=== PATIENT | female | born 1960 | race Caucasian/White ===

== ENCOUNTER → 2017-09-12 08:12 | Outpatient (CLI) | payer OTHER, SELFPAY ==
--- NOTE | 2017-09-12 08:14 | BI_ITS ---
MAMMOGRAPHY - BILATERAL SCREENING REASON FOR EXAM: Female, 57 years old. Routine annual screening examination. PERTINENT HISTORY: Non-contributory. TECHNIQUE: Digital bilateral breast nicolette (3D mammographic acquisition) in the CC and MLO projections. 2-D mediolateral oblique (MLO) and craniocaudad (CC) views of both breasts were obtained. CAD: Full Field Digital Mammography with Computer Added Detection was performed. COMPARISON: Comparison is made with prior examination dated May 27, 2016 and February 05, 2015. FINDINGS: Breast Composition: The breasts are heterogeneously dense, which may obscure small masses. There are no dominant masses or suspicious calcifications. No other significant abnormalities are identified. There has been no significant change since the prior study. BI/SCREENING MAMM (CAD), BILAT IMPRESSION: Stable bilateral screening mammogram. Yearly follow-up mammogram recommended. (A) ASSESSMENT CATEGORY: BIRADS Category 1: Negative. A letter regarding these results will be sent to the patient by the facility within 30 days. Approximately 10% of breast cancers are not detected by mammography. A normal mammogram should not delay biopsy of a clinically suspicious abnormality. [id number] Electronically Signed: Basil Burt MD at 9:03 EDT Tel [phone], Service support ,
== END ==
PROVIDERS: Family Provider Family Medicine; PCP Family Medicine; Visit Provider Obstetrics & Gynecology
DX: Z12.31 Encounter for screening mammogram for malignant neoplasm of breast (principal)
CPT/HCPCS: 77063; 77067

== ENCOUNTER 2017-10-02 15:00 | Outpatient (RCR) | payer OTHER, SELFPAY ==
--- NOTE | 2017-09-11 16:49 | HP.OTEVAL_ITS ---
Patient's Visit Information SRAVANTHI COULTER is a 57 year old F, referred to Occupational Therapy by Asif Webb, with a diagnosis of CTS. Date of Evaluation: 09/11/17 Occupational Therapist: Jennifer Joseph, KENYA/Gladis, CHT - Subjective Subjective: Pt states she had a C3-C7 fusion in 2015- pt states following sx her symptoms did resolve- pt states in October 2016 she was paddle boarding and noted increase symptoms of numbness tingling- at this point- pt state she has had steroid orally but would like to handle her symptoms without medication or sx-pt states she does sleep in a wrist brace. pt states she get relief when she danggles her arm off the edge of the bed. 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 - Pain left wrist 4 Pain Intensity Range: 1, 6 - ROM ROM Comments: ROM WNL - Strength Forearm: Right 4+/5 left 4/5 pain with resisitive pro/supination Decorating Machine Tender: right 35# left 60# Lateral Pinch: right 10# left 8# Tripod Pinch: right 8# left 2# pain with tripod pinch on volar forearm - Edema Wrist: right 16cm left 16.5cm - Sensation Thumb: right 2.83 left 2.83 Index: right 2.83 left 3.22 Middle: right 2.83 left 2.83 Ring: right 2.83 left 2.83 Little: right 2.83 left 2.83 - Special Tests Median Nerve Compression Test: positive - Carpal Tunnel Syndrome Total Score of Symptom & Functional Sections: 39 - Goals Goal:: pt will demo a increase pts left single pointed operator strength to 60# or greater to return pt to PLOF by d/c Goal:: pt will report pain no greater than 1/10 with use of left hand for BADLS and IADLS by D/C Goal:: pt will report a decrease in CTS to less than 1x a week by d/c - Rehabilitation General Assessment: PT is demo with positive CTS of left UE. pt would benefit from skilled OT services to decrease symptoms of numbness/tingling, ed. on ergo and PRE to work on posture ex for pt to return to her PLOF. Rehabilitation Potential: Good - Anticipated Interventions Anticipated Interventions: A/POPOM/PROM, Strengthening, Modalities, Orthoses, Joint Protection/Energy Conservation, Ergonomic Education - Visit Plan Frequency: 2x /Week Duration: 4 Weeks TEXT: Thank you for the opportunity to evaluate your patient. For Medicare and Medicare HMO plans, please review the plan of care and approve it. It will need to be FAXED BACK to us at [phone] for Medicare purposes. Please let me know if there are questions or concerns regarding this plan of care. Physician Signature: Date:
--- NOTE | 2017-09-11 16:50 | HP.PTEVAL ---
Patient's Visit Information SRAVANTHI COULTER is a 57 year old F referred to Physical Therapy by Asif Webb with a diagnosis of THORACIC OUTLET SYNDROME. Date of Evaluation: 09/11/17 Physical Therapist: Migdalia Green - Visit Plan Frequency: 1 Duration: 1 Plan: D/C FROM PT TO HEP AND FOLLOW UP WITH OT. - Subjective Subjective: Diagnosis: THORACIC OUTLET SYNDROME. Work/Leisure: RETIRED. 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 Disability: NO. Present symptoms: NO NECK PAIN AT ALL. LEFT HAND NUMBNESS AND COLDNESS. HER LEFT HAND SX'S OCCURRED RECENT YESTERDAY. THE HAND GETS VERY COLD AT TIMES AND TINGLY. SOME PAIN ONCE IN A WHILE IN THE SHOULDER JOINT. HER LEFT SHOULDER PAIN HAS NOT OCCURRED FOR ABOUT A MONTH NOW. SOMETIMES IT FEELS LIKE RARELY IT SHOOTS DOWN THE ARM INTO THE UPPER ARM - NOT BELOW THE ELBOW AND NOT SINCE TAKING THE PREDNISONE. ALTHOUGH HER HAND IS STARTING TO GO NUMB AGAIN SHE IS ABLE TO MAKE IT GO AWAY BY NOT USING HER ARM AND RESTING IT. Present since: LAST OCTOBER 2016 - ALMOST A YEAR AGO. Pain Scale: Worst - NO SHOULDER PAIN FOR ABOUT A MONTH. Currently: 0/10. 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 Symptoms at onset: CONTINUOUS NUMBNESS OF LEFT HAND. Worse: PRIOR TO TAKING THE PREDNISONE ALMOST ANYTHING PROVOKED LEFT SHOULDER PAIN. AND SOMETIMES IT WOULD JUST OCCUR FOR NO APPARENT REASON. Better: LYING ON STOMACH AND LETTING ARM DANGLE COMPLETELY RELIEVES ALL OF LEFT UE SX'S BUT SHE HASN'T HAD TO DO IT FOR ABOUT A MONTH BECAUSE SHE STARTED PREDNISONE. SHE HAS BEEN OFF OF PREDNISONE ABOUT 13 DAYS NOW. Disturbed sleep: YES. Previous history/Previous treatment: ACDF NOV 2015 - [facility]. 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 WEBB A FEW TIMES. SHE REPORTS SHE HAS HAD SOME SEVERE EPISODES OF PAIN BUT PREDNISONE HAS HELPED AND SHE WAS ON IT FOR ABOUT A MONTH. SHE STATES SHE HAD A FOLLOW UP WITH DR. LEMA SINCE THIS ARM/HAND FLARED UP AND AFTER NCT AND X-RAYS OF NECK THEY DETERMINED IT WAS CARPAL TUNNEL SYNDROME. SHE REPORTS THE NCT FOR CARPAL TUNNEL WAS WORSE THIS TIME COMPARED TO LAST NCT IN 2014. Dizziness: Tinnitis: Nausea: Difficulty Swollowing: Gait: Accidents: Unexplained weight loss: Imaging: PMH/Recent major surgery: - Objective Sitting Posture/Standing Posture: FAIR. Active Correction of posture: NE. Other Observations: INDEP GAIT AND TRANSFERS. NO AD'S. Motor deficit: LOI SHOULDERS 5/5. Sensory deficit: HANDS NT - JUST HAD OT EVAL. ROM deficit: LOI SHOULDER ROM WFL. Cervical Mvmt Loss: Flex: MIN. Pro: MIN. Ext: MOD. Ret: MOD. RSB: MOD. LSB: MOD. R Rot: MOD. L Rot: MOD. CERVICAL ROM TESTING DOES NOT PROVOKE ANY UE SX'S. Postural strength: FAIR. OTHER: ADSON'S TEST - NEGATIVE. PATIENT DENIED SHOULDER AND UPPER ARM PAIN THROUGHOUT SESSION TODAY INCLUDING WITH EX INSTRUCTION. HEP OF SCALENE STRETCH, PEC STRETCH, SCAP RETRACTION, THORACIC EXTENSION, ROWING, PRONE MID TRAP STRENGTHENING AND AROM INTO LOI ABD AGAINST WALL ALL GIVEN. - Goals Goal 1:: INDEP HEP Goal Time Frame: 1 VISIT Goal Time Frame: 4-6 Weeks Goal Time Frame: 4-6 Weeks - Rehabilitation Potential Rehabilitation Potential: Fair - Anticipated Interventions Patient/Client Instruction: Educate patient on: Condition, Plan of Care, Risk Factors, Benefits of Fitness Program For the Purpose of:: To improve self management Thank you for the opportunity to evaluate your patient. For Medicare and Medicare HMO plans, please review the plan of care and approve it. It will need to be FAXED BACK to us at [phone] for Medicare purposes. Please let me know if there are questions or concerns regarding this plan of care. Physician Signature: Date:
--- NOTE | 2017-09-11 16:52 | HP.PTDCSUM_ITS ---
HP - PT D/C Summary It has been my pleasure to treat SRAVANTHI COULTER under orders from Asif Webb , for the diagnosis of THORACIC OUTLET SYNDROME for a total of 1 visit(s). Discharge Date: Please see the following information for a summary of their discharge status. - Goals Goal 1:: INDEP HEP - Plan Plan: D/C FROM PT TO HEP AND FOLLOW UP WITH OT. - D/C Information If there are questions or concerns regarding this patient's physical therapy, please feel free to call me at [phone]. Thank you for the referral of this patient. Sincerely, Migdalia Green
--- NOTE | 2017-10-02 15:00 | DT_ITS ---
This patient was seen during an EMR downtime September 25, 2017 - October 02, 2017. This patient may have a combination of paper and electronic documentation or all paper documentation. All documentation is viewable within the e-chart portion of [employer] for each patient visit.
--- NOTE | 2017-10-02 15:48 | HP.OTDCSUM_ITS ---
HP - OT D/C Summary It has been my pleasure to treat SRAVANTHI COULTER under orders from Asif Webb , for the diagnosis of CTS for a total of 7 visit(s). Please see the following information for a summary of their discharge status. - Overall Improvement % Improvement: 95 - Objective Objective/Function: left customer resolution specialist strength 60#. right 80# both customer resolution specialist strength has improved- pt demo full functional ROM of UB/and hand- - Goals Patient Goals: Regain Strength, Decrease Pain, Use Hand/Wrist/Arm Normally Again , Sleep Better, Decrease Tingling/Numbness Goal:: pt will demo a increase pts left customer resolution specialist strength to 60# or greater to return pt to PLOF by d/c Goal:: pt will report pain no greater than 1/10 with use of left hand for BADLS and IADLS by D/C Goal:: pt will report a decrease in CTS to less than 1x a week by d/c - Plan Plan: D/C - D/C Information Discharge Comments: Pt was seen for a 7 OT visits- therapy ed. pt on forearm stretches, posture and forearm ext PRE with bands- pt did well following US and use of Hawk tool to decrease trigger points in left volar and dorsal forearms. pt's strength has incrased and symptoms of numb/ting and pain are minimal. pt has met functional goals in OT and is D/C with [facility] If there are questions or concerns regarding this patient's occupational therapy , please fell free to call me at [phone]. Thank you for the referral of this patient. Sincerely, Jennifer Joseph, OTR/L, CHT
== END 2017-10-02 19:00 | disposition home or self-care (01) ==
LOC: OT 15:00
PROVIDERS: Family Provider Family Medicine; PCP Family Medicine; Visit Provider Family Medicine
DX: G54.0 Brachial plexus disorders (principal); G56.00 Carpal tunnel syndrome, unspecified upper limb
CPT/HCPCS: 97035; 97140; 97162; 97166; 97168; 97530

== ENCOUNTER 2018-03-27 09:10 | Day surgery (SDC) | payer OTHER, SELFPAY ==
[2018-03-27] VITALS (8 sets, daily range): BP systolic 126–170; BP diastolic 64–117; PULSE 52–71; RESP 16; TEMP 36.4–36.6; O2SAT 98–100; BMI 22.4
--- NOTE | 2018-03-27 10:31 | PCM.HP.STD ---
Problem List (1) Screening for intestinal cancer Status: Acute History of Present Illness Date of Admission: 03/27/18 The patient is a 58 year old F who presents for a screening colonoscopy. She has never had a previous procedure. She denies bright red blood per rectum or melena. She well tolerated the bowel prep. No abdominal pain. No family history of colon polyps or colon cancer. She otherwise enjoys good health other than mild hypertension Past Medical History Allergies codeine Adverse Reaction (Verified 03/26/18 09:14) nausea/vomiting morphine Adverse Reaction (Verified 03/26/18 09:14) Nausea/Vom/Diarrhea Home Medications: Ambulatory Orders Medication Instructions Recorded Bisoprolol Fumarate [Zebeta] 5 mg PO LUNCH 03/26/18 Magnesium Oxide [Magnesium] 250 mg PO DAILY 03/26/18 Vitamin B Complex 1 each PO DAILY 03/26/18 Smoking Status: Never smoker Tobacco Use: Non-smoker Review of Systems Constitutional: Denies: Anorexia HEENT: Denies: Difficulty Swallowing Cardiovascular: Denies: Chest Pain Respiratory: Denies: Cough Gastrointestinal: Denies: Abdominal Pain, Hematochezia, Melena Psychiatric: Denies: Anxiety Endocrine: Denies: Change in Body Habitus VTE Information - Inpt Only VTE Present on Admission: No Patient Problems: Active and Suspected Problems Screening for intestinal cancer (Acute) - Physical Exam General: Alert, Oriented x3, Cooperative, No apparent distress HEENT: Atraumatic Oral: Moist Mucosa Lungs: Clear to auscultation, Normal air movement Cardiovascular: Regular rate, Regular Rhythm Abdomen: Bowel Sounds Present, Soft, Non Tender, Non-Distended Extremities: No Calf Tenderness Skin: No rashes Neurological: Cranial nerves II-XII grossly intact Psych/Mental Status: Normal Affect Vital Signs Temp Pulse Resp BP Pulse Ox 97.8 F 71 16 146/99 H 100 03/27/18 09:29 03/27/18 09:29 03/27/18 09:29 03/27/18 09:29 03/27/18 09:29 Oxygen Delivery Method Room Air Weight: 120 lb 9.486 oz Body Mass Index (BMI) 22.4 Assessment/Plan All Active Problems Screening for intestinal cancer (Acute) I am recommending a colonoscopy with possible biopsy or polypectomy as indicated. She instructs me that she is intolerant to morphine and codeine. She presents via our open access program. I have discussed with her the technique, benefits, risks and alternatives. She has had an opportunity to ask and have questions answered. We will proceed as noted. I will initiate the procedure with an antiemetic. Arnaldo Vargas M.D., F.A.C.S.
--- NOTE | 2018-03-27 11:01 | OP.ENDO_ITS ---
Patient Name: Sandra Aparicio Procedure Date: 03/27/2018 10:29 AM Date of : 1960 Age: 58 Procedure: Colonoscopy Indications: Screening for colorectal malignant neoplasm Providers: Arnaldo Vargas MD Referring MD: Arnaldo Vargas MD Medicines: Fentanyl 100 micrograms IV, Midazolam 6 mg IV, Ondansetron 4 mg IV, Promethazine 12.5 mg IV Patient Profile: Last Colonoscopy: none. The patient's first colonoscopy is today. Complications: No immediate complications. Procedure: Pre-Anesthesia Assessment: - Prior to the procedure, a History and Physical was performed, and patient medications and allergies were reviewed. The patient's tolerance of previous anesthesia was also reviewed. The risks and benefits of the procedure and the sedation options and risks were discussed with the patient. All questions were answered, and informed consent was obtained. Prior Anticoagulants: The patient has taken no previous anticoagulant or antiplatelet agents. ASA Grade Assessment: I - A normal, healthy patient. After reviewing the risks and benefits, the patient was deemed in satisfactory condition to undergo the procedure. After I obtained informed consent, the scope was passed under direct vision. Throughout the procedure, the patient's blood pressure, pulse, and oxygen saturations were monitored continuously. The pediatric colonoscope was introduced through the anus and advanced to the cecum, identified by appendiceal orifice and ileocecal valve. The colonoscopy was performed without difficulty. The patient tolerated the procedure fairly well. The quality of the bowel preparation was good. The ileocecal valve was photographed. Moderate Sedation: Moderate (conscious) sedation was personally administered by the endoscopist. The following parameters were monitored: oxygen saturation, heart rate, blood pressure, and response to care. Total physician intraservice time was 15 minutes. Scope In: 10:40:49 AM Scope Withdrawal Time 0 hours 7 minutes 1 second Scope Out: 10:57:17 AM Total Procedure Duration Time 0 hours 16 minutes 28 seconds Findings: Hemorrhoids were found on perianal exam. The colon (entire examined portion) was moderately redundant. Advancing the scope required using manual pressure. The exam was otherwise without abnormality. Impression: - Hemorrhoids found on perianal exam. - Redundant colon. - The examination was otherwise normal. - No specimens collected. Recommendation: - Discharge patient to home. - Resume previous diet. - Repeat colonoscopy in 10 years for screening purposes. - Continue present medications. Procedure Code(s): --- Professional --- 78585, Colonoscopy, flexible; diagnostic, including collection of specimen(s) by brushing or washing, when performed (separate procedure) 57085, 59, Moderate sedation services provided by the same physician or other qualified health clinical care coordinator performing the diagnostic or therapeutic service that the sedation supports, requiring the presence of an independent trained observer to assist in the monitoring of the patient's level of consciousness and physiological status; initial 15 minutes of intraservice time, patient age 5 years or older Diagnosis Code(s): --- Professional --- Z12.11, Encounter for screening for malignant neoplasm of colon K64.9, Unspecified hemorrhoids Q43.8, Other specified congenital malformations of intestine CPT copyright 2017 [employer]. All rights reserved. The codes documented in this report are preliminary and upon data reduction technician review may be revised to meet current compliance requirements. Arnaldo Vargas MD 03/27/2018 11:01:28 AM This report has been signed electronically. Number of Addenda: 0 Note Initiated On: 03/27/2018 10:29 AM
== END 2018-03-27 12:13 | disposition home or self-care (01) ==
LOC: EN 09:11 → AC 09:12
PROVIDERS: Family Provider Family Medicine; PCP Family Medicine; Referring Provider Surgery; Visit Provider Surgery
PROC: 0DJD8ZZ Inspection of Lower Intestinal Tract, Via Natural or Artificial Opening Endoscopic (ICD-10-PCS; CPT 45378; principal; 2018-03-27 10:10)
DX: Z12.11 Encounter for screening for malignant neoplasm of colon (principal); K64.9 Unspecified hemorrhoids; Q43.8 Other specified congenital malformations of intestine; I10 Essential (primary) hypertension; Z79.899 Other long term (current) drug therapy
CPT/HCPCS: 45378; 99152; 99153; J7120; J2405

== ENCOUNTER → 2018-07-19 13:50 | Outpatient (CLI) | payer OTHER, SELFPAY ==
[2018-03-27 09:29] VITALS: BMI 22.4
[2018-07-19 15:36] LABS: Absolute Lymphocyte Count 2.37 X10^3/ul (0.83-4.51); Absolute Neutrophil Count 2.9 X10^3/uL (2.0-7.7); Basophil# 0.04 X10^3/uL; Basophil% 0.7 % (0-1); Eosinophils% 1.7 % (0-5); Hematocrit 42.7 % (37-47); Hemoglobin 13.7 g/dl (12.0-15.0); Lymphocyte # 2.37 X10^3/ul (4.0); Lymphocyte % 40.6 % (19-41); Mean Corp Hgb Conc 32.1 g/gl (32-36); Mean Corpuscular Hgb 31.3 pg (27.0-32.0); Mean Corpuscular Volume 97.5 fL (81-99); Mean Platelet Vol. 10.9 fl (6.2-12.0); Monocyte# 0.45 X10^3/uL; Monocyte% 7.7 % (0-10); Neutrophil # 2.87 X10^3/uL (2.7-7.7); Neutrophil % 49.1 % (47-70); Platelet Count 261 K/mm3 (150-450); RBC Distribution Width CV 12.6 % (11.6-14.6); RBC Distribution Width SD 43.9 fl (35.1-43.9); Red Blood Count 4.38 M/mm3 (4.2-5.4); White Blood Count 5.8 K/mm3 (4.4-11.0)
[2018-07-19 15:39] LABS: POSITIVE COUNT NO; POSITIVE DIFFERENTIAL NO; POSITIVE MORPHOLOGY NO
[2018-07-19 16:00] LABS: ALB/GLOB Ratio 1.4 RATIO (0.9-2.4); AST(SGOT) 27 U/L (15-37); Alanine Aminotransfer ALT/SGPT 32 U/L (13-56); Albumin, Serum 4.3 g/dL (3.2-5.0); Alkaline Phosphatase 74 U/L (45-117); Anion Gap 8 (5-15); BUN 18 mg/dL (7-18); BUN/Creat Ratio 22.5 RATIO (10-20); Calcium,Total 9.1 mg/dL (8.5-10.1); Chloride 102 mmol/L (98-107); Cholesterol 226 mg/dL (200); EST Glomerular Filtration Rate 78 mL/min (>60); Est Glom Filt Rate - Afr Amer 95 mL/min (>60); Globulin 3.1 g/dL (2.2-4.2); Glucose 90 mg/dL (74-106); High Density Lipoprotein 72 mg/dL; Protein, Total 7.4 g/dL (6.4-8.2); Sodium Level 139 mmol/L (136-145); Thyroid Stim Hormone (TSH) 1.97 uIU/mL (0.358-3.74); Triglycerides 117 mg/dL; Very Low Density Lipoprotein 23 mg/dL (5-40)
[2018-07-19 16:20] LABS: Microalbumin,Random Urine < 5.0 mg/L (NO RANGE EST.)
== END ==
PROVIDERS: Family Provider Family Medicine; PCP Family Medicine; Referring Provider Family Medicine; Visit Provider Family Medicine
DX: I10 Essential (primary) hypertension (principal)
CPT/HCPCS: 36415; 80053; 80061; 82043; 82570; 84443; 85025

== ENCOUNTER 2019-02-13 18:20 | Inpatient (IN) | payer OTHER, SELFPAY ==
[2019-02-12 08:38] VITALS: BMI 22.4
[2019-02-13 18:22] VITALS: BP 161/103; PULSE 77; RESP 16; TEMP 36.1
[2019-02-13 18:23] VITALS: BP 161/103; PULSE 77; RESP 16; TEMP 36.1; BMI 22.6
--- NOTE | 2019-02-13 20:12 | ED.DCSUM_ITS ---
History of Present Illness Chief Complaint: Bite Narrative: Patient is a 58-year-old female who presents with a cat bite to the left hand. She was bitten on Monday evening, 2 days ago. The next morning she was seen in urgent care and started on antibiotics. Since that time she has developed redness and particularly in the last 5 hours it has become more painful and she has had redness extending up onto her forearm. She saw her primary care physician who sent her here to the emergency department for further evaluation and treatment. She denies any systemic symptoms such as fevers or nausea. She is not diabetic. Past Medical History - Allergies and Home Meds Allergies/Adverse Reactions: Allergies codeine Adverse Reaction (Verified 02/12/19 08:35) nausea/vomiting morphine Adverse Reaction (Verified 02/12/19 08:35) Nausea/Vom/Diarrhea Primary Care Physician: Asif Webb MD [Primary Care Provider] - Past Medical History: - - Hypertension Smoking Status: Never smoker Review of Systems General: Denies: Fever Cardiovascular: Denies: Chest pain Respiratory: Denies: Dyspnea Gastrointestinal: Denies: Nausea, Vomiting Musculoskeletal: Reports: - - Left hand and thumb pain, redness Physical Exam Vital Signs/Narrative: Vital Signs Temp Pulse Resp BP 02/13/19 18:23 96.9 F L 77 16 161/103 H 02/13/19 18:22 96.9 F L 77 16 161/103 H General: Well nourished Head: Normocephalic Eyes: EOMI ENT: Moist mucous membranes Cardiovascular: Regular rate, Regular rhythm Respiratory: No distress Extremities: - - Patient has a puncture wound over the dorsal and palmar side of the left hand overlying the first MCP joint, she has good short arc range of motion with minimal pain but does have pain on palpation soft tissue swelling I do not appreciate fluctuance or focal abscess amenable to incision and drainage she has induration and cellulitis extending about mcc up the forearm no pain at the wrist normal sensation distally with brisk capillary refill Diagnostic/Tx/Re-eval Impressions Hand X-Ray 02/13/19 20:20 02/13/19 20:20 Xray Hand [Hand Min 3 Views] [RAD] Stat Laboratory Results 02/13/19 02/13/19 20:10 20:10 WBC 11.9 H RBC 4.77 Hgb 15.1 H Hct 45.2 MCV 94.8 MCH 31.7 MCHC 33.4 RDW Std Deviation 45.2 H RDW Coeff of Enrique 12.8 Plt Count 288 MPV 10.1 Immature Gran % (Auto) 0.400 Neut % (Auto) 70.9 H Lymph % (Auto) 22.0 Osborne % (Auto) 5.7 Eos % (Auto) 0.4 Baso % (Auto) 0.6 Absolute Neuts (auto) 8.5 H Absolute Lymphs (auto) 2.63 Nucleated RBC % 0 Sodium 136 Potassium 3.4 L Chloride 98 Carbon Dioxide 31.0 Anion Gap 7 BUN 12 Creatinine 0.86 Estim Creat Clear Calc 54.46 Est GFR (MDRD) Af Amer 87 Est GFR (MDRD) Non-Af 72 BUN/Creatinine Ratio 13.9 Glucose 99 Calcium 9.8 - Medical Decision Making Patient was treated with IV Zosyn. Patient declined any pain medications including Toradol. X-ray of the left hand is unremarkable and labs are only notable for mild leukocytosis. I do believe patient will require IV antibiotic s. At this point I do not believe she has a septic joint or abscess requiring incision and drainage. Patient will be discussed with the hospitalist and admitted. ED Disposition - Plan for ED Patient: Disposition: Acute Care Hospital [facility] Diagnosis: Cat bite involving extremity, Cellulitis Referrals: Asif Webb MD [Primary Care Provider] -
--- NOTE | 2019-02-13 20:20 | RAD_ITS ---
STUDY: X-RAY - LEFT HAND REASON FOR EXAM: Female, 58 years old. Right TECHNIQUE: 3 view(s) of the hand. COMPARISON: None. FINDINGS: No acute fracture, dislocation or osseous destruction. No significant joint space narrowing. No significant productive changes. No significant soft tissue swelling. IMPRESSION: Unremarkable radiographs of the left hand. Electronically Signed: Félix Gandhi, at 20:49 EDT Tel , Service support , RAD/Hand Min 3 Views
[2019-02-13 20:30] LABS: Absolute Lymphocyte Count 2.63 X10^3/uL (0.83-4.51); Absolute Neutrophil Count 8.5 X10^3/uL (2.0-7.7); Basophil# 0.07 X10^3/uL; Basophil% 0.6 % (0-1); Eosinophil# 0.05 X10^3/uL; Eosinophils% 0.4 % (0-5); Hematocrit 45.2 % (37-47); Hemoglobin 15.1 g/dL (12.0-15.0); Lymphocyte # 2.63 X10^3/ul (4.0); Mean Corp Hgb Conc 33.4 g/dL (32-36); Mean Corpuscular Hgb 31.7 pg (27.0-32.0); Mean Corpuscular Volume 94.8 fL (81-99); Mean Platelet Vol. 10.1 fl (6.2-12.0); Monocyte# 0.68 X10^3/uL; Monocyte% 5.7 % (0-10); NRBC Flagged by Analyzer 0 % (0-5); Neutrophil # 8.46 X10^3/uL (2.7-7.7); Neutrophil % 70.9 % (47-70); Platelet Count 288 K/mm3 (150-450); RBC Distribution Width CV 12.8 % (11.6-14.6); RBC Distribution Width SD 45.2 fl (35.1-43.9); Red Blood Count 4.77 M/mm3 (4.2-5.4); White Blood Count 11.9 K/mm3 (4.4-11.0)
[2019-02-13 20:38] LABS: Anion Gap 7 (5-15); BUN 12 mg/dL (7-18); BUN/Creat Ratio 13.9 RATIO (10-20); Calcium,Total 9.8 mg/dL (8.5-10.1); Chloride 98 mmol/L (98-107); Creatinine, Serum 0.86 mg/dL (0.55-1.02); EST Glomerular Filtration Rate 72 mL/min (>60); Est Glom Filt Rate - Afr Amer 87 mL/min (>60); Estimated Creatinine Clearance 54.46 ml/min; Glucose 99 mg/dL (74-106); Potassium 3.4 mmol/L (3.5-5.1); Sodium Level 136 mmol/L (136-145)
--- NOTE | 2019-02-13 21:19 | PCM.HP.STD ---
Problem List (1) Cat bite involving extremity Status: Acute (2) Cellulitis Status: Acute (3) Cat bite of left hand Status: Acute Qualifiers: Encounter type: initial encounter Qualified Code(s): S61.452A - Open bite of left hand, initial encounter; W55.01XA - Bitten by cat, initial encounter History of Present Illness Date of Admission: 02/13/19 Chief Complaint: Cat bite The patient is a 58 year old F with a significant history of a cat bite that happened 3 days ago while picking her cat from an unfamiliar environments. The cat bit her left first metacarpal. Associated with her symptoms IS extreme pain of her left hand extending to her left forearm. Also she had erythema and swelling of the above areas. She went to renal clinic and she was given amoxicillin which she had taken 3 doses before presentation to the emergency department. Because her symptoms was getting progressively worse she went to see Dr. Webb her PCP. At the PCPs office her temperature was 99.4. Patient was advised to come to the emergency department and get IV antibiotics. Also patient reports chills and poor appetite. The patient's is in excruciating pain she refused any pain medication at the emergency department. Her last tetanus shot was about a year ago. Past Medical History Medical History: Medical History (Last Reviewed 02/13/19 @ 22:04 by Julián Larson MD) Arthritis M19.90 Hypertension I10 Allergies codeine Adverse Reaction (Verified 02/12/19 08:35) nausea/vomiting morphine Adverse Reaction (Verified 02/12/19 08:35) Nausea/Vom/Diarrhea Home Medications: Ambulatory Orders Medication Instructions Recorded atenolol 25 mg tablet 25 mg PO DAILY #90 tab 02/12/19 Surgical History: Surgical History (Last Reviewed 02/13/19 @ 22:04 by Julián Larson MD) History of neck surgery Z98.890 Lives: Spouse/ Significant Other Smoking Status: Never smoker Alcohol: Occasional - *Family History Maternal History Items: Cancer - Stomach to bone Paternal History Items: Heart Disease - His father had heart attack Review of Systems Constitutional: Reports: Chills, Fever - Low-grade fever. Denies: Weight Change HEENT: Denies: Head Aches, Sinus Congestion, Sinus Drainage Cardiovascular: Reports: Edema - Left hand. Denies: Chest Pain, Palpitations Respiratory: Denies: Cough, Shortness of breath at rest, Sputum production Gastrointestinal: Denies: Abdominal Pain, Nausea, Vomiting Genitourinary: Denies: Dysuria Musculoskeletal: Reports: Joint Pain - Left hand, Joint Tenderness - Left hand Skin: Reports: Rash - Left hand, -. Denies: Wounds Neurological: Denies: Numbness, Tingling, Focal weakness Psychiatric: Denies: Anxiety, Depression, Homicidal Ideations, Suicidal Ideations Hematologic/ Lymphatic: Denies: Easy Bruising, Easy Bleeding VTE Information - Inpt Only VTE Present on Admission: No VTE Mechan Device Prophylaxis: SCD's VTE Pharm Prophylaxis ordered?: No Patient Problems: Active and Suspected Problems (Last Reviewed 02/13/19 @ 22:04 by Julián Larson MD) Cat bite involving extremity (Acute) Cellulitis (Acute) - Physical Exam Vitals/I&O's: Vital Signs Temp Pulse Resp BP 96.9 F L 77 16 161/103 H 02/13/19 18:23 02/13/19 18:23 02/13/19 18:23 02/13/19 18:23 Weight: 54.4 kg Body Mass Index (BMI) 22.6 General: Alert, Oriented x3, Cooperative HEENT: Atraumatic, PERRLA, EOMI, Normocephalic Neck: Supple, No JVD, Negative Carotid Bruits Lungs: Clear to auscultation, Normal air movement Cardiovascular: Regular rate, No murmurs Abdomen: Bowel Sounds Present, Soft, Non Tender Extremities: Capillary Refill Less than 3 Seconds, Edema - Left hand and forearm, Tenderness - Extreme tenderness of left hand and left forearm Skin: - - Pustules on left hand Musculoskeletal: Tenderness - Left hand and forearm Neurological: Cranial nerves II-XII grossly intact Psych/Mental Status: Normal Affect, Appropriate Laboratory Results 02/13/19 20:10: WBC 11.9 H, RBC 4.77, Hgb 15.1 H, Hct 45.2, MCV 94.8, MCH 31.7, MCHC 33.4, RDW Std Deviation 45.2 H, RDW Coeff of Enrique 12.8, Plt Count 288, MPV 10.1, Immature Gran % (Auto) 0.400, Neut % (Auto) 70.9 H, Lymph % (Auto) 22.0, [place] % (Auto) 5.7, Eos % (Auto) 0.4, Baso % (Auto) 0.6, Absolute Neuts (auto) 8.5 H, Absolute Lymphs (auto) 2.63, Nucleated RBC % 0 02/13/19 20:10: Sodium 136, Potassium 3.4 L, Chloride 98, Carbon Dioxide 31.0, Anion Gap 7, BUN 12, Creatinine 0.86, Estim Creat Clear Calc 54.46, Est GFR (MDRD) Af Amer 87, Est GFR (MDRD) Non-Af 72, BUN/Creatinine Ratio 13.9, Glucose 99, Calcium 9.8 Assessment/Plan All Active Problems (Last Reviewed 02/13/19 @ 22:04 by Julián Larson MD) Cat bite involving extremity (Acute) Cellulitis (Acute) Cat bite of left hand (Acute) The patient is a 58 year old F with a significant history of a cat bite surrounding erythema; swelling; pain and chills consistent with a cat bite with cellulitis. Cat bite with cellulitis Patient received Zosyn at the emergency department. We will continue patient on Zosyn. Initially was refusing pain medicine but with increasing accept pain meds. PRN norco ordered. Bowel protocol and antiemetics in place. We will consult infectious disease and , Plastic surgeon to optimize management. Patient is current on a tetanus injection having received tetanus shot about a year ago. Trend CBC and BMP Hypokalemia On presentation her potassium was 3.4 Replacement ordered Trend BMP. Hypertension On presentation her blood pressure was not within goal. Pain could be contributing to her blood pressure. Home atenolol continued PRN Hydralazine added Trend blood pressure and adjust blood pressure medications. DVT prophylaxis SCD for now Code Visit Inpatient E&M: 67398 Init Hosp L3
[2019-02-13 22:20] VITALS: BMI 22.0
[2019-02-13 23:00] VITALS: BP 163/95; PULSE 76; RESP 18; TEMP 37.2; O2SAT 96
[2019-02-14] VITALS (14 sets, daily range): BP systolic 114–175; BP diastolic 75–111; PULSE 64–78; RESP 14–18; TEMP 36.1–36.9; O2SAT 93–100; BMI 22.0
[2019-02-14] MEDS: MELATONIN 3 MG TABLET PO (00:28)
[2019-02-14] MEDS: HYDROcodone Bitartrate/Apap 5/325 Tablet PO (00:28)
[2019-02-14] MEDS: 0.9% Saline Lock 10 ML Syringe IV ×4 (05:14→21:33)
[2019-02-14 05:25] LABS: Absolute Lymphocyte Count 2.72 X10^3/uL (0.83-4.51); Absolute Neutrophil Count 6.2 X10^3/uL (2.0-7.7); Basophil# 0.07 X10^3/uL; Basophil% 0.7 % (0-1); Hematocrit 40.4 % (37-47); Hemoglobin 13.3 g/dL (12.0-15.0); Lymphocyte # 2.72 X10^3/ul (4.0); Lymphocyte % 27.1 % (19-41); Mean Corp Hgb Conc 32.9 g/dL (32-36); Mean Corpuscular Hgb 31.1 pg (27.0-32.0); Mean Corpuscular Volume 94.6 fL (81-99); Mean Platelet Vol. 10.1 fl (6.2-12.0); Monocyte# 0.93 X10^3/uL; Monocyte% 9.3 % (0-10); NRBC Flagged by Analyzer 0 % (0-5); Neutrophil # 6.17 X10^3/uL (2.7-7.7); Neutrophil % 61.5 % (47-70); Platelet Count 252 K/mm3 (150-450); RBC Distribution Width CV 12.8 % (11.6-14.6); Red Blood Count 4.27 M/mm3 (4.2-5.4)
[2019-02-14 05:53] LABS: Anion Gap 3 (5-15); BUN 9 mg/dL (7-18); BUN/Creat Ratio 11.9 RATIO (10-20); Calcium,Total 8.9 mg/dL (8.5-10.1); Chloride 103 mmol/L (98-107); Creatinine, Serum 0.76 mg/dL (0.55-1.02); EST Glomerular Filtration Rate 84 mL/min (>60); Est Glom Filt Rate - Afr Amer 101 mL/min (>60); Estimated Creatinine Clearance 61.63 ml/min; Glucose 114 mg/dL (74-106); Potassium 4.1 mmol/L (3.5-5.1); Sodium Level 136 mmol/L (136-145)
--- NOTE | 2019-02-14 09:20 | BON_PTH ---
PATIENT: SRAVANTHI COULTER LOC: [facility] U#:[id number] AGE/SX: 58/F ROOM: [facility] RE02/13/[address]: Dr. Emily Donovan DO : 1960 BED: 1 DIS: 02/17/2019 SPEC #: [id number] RECD: 02/14/19 12:34 STATUS: EAN EDDA #: [id number] CORETTA: 02/14/19 09:[address]: Vipin Arita DEPT: SURGICAL PATHOLOGY RECD BY: Juan Antonio Mckeon ENTERED: 02/14/19 13:41 SP TYPE: Bone OTHR DR: DO Dr. Asif Gold MD Dr. Joseph Agyepong, MD Dr. Robert Leininger, MD Tissues: A - Thumb, NOS B - Thumb, NOS Procedures: Decalcification bone/plaque Surgery Specimen Level IV HEADER OPERATION: Surgical preparation left thumb with incision and drainage PRE-OP DIAGNOSIS: Cat bite of left hand, cellulitis TISSUE SUBMITTED: A - Left thumb soft tissue, B - Left thumb bone MICROSCOPIC DIAGNOSIS A. Soft tissue of left thumb, biopsy: Acute and chronic inflammation and associated granulation. Skin with hyperkeratosis. B. Bone of left thumb, biopsy: Bone with reparative and reactive change with focal acute osteomyelitis. AM:keagan 02/18/19 COMMENT Case has been reviewed in consultation with Dr. Perkins who concurs with the above diagnosis. IDC:SJ MICROSCOPIC DESCRIPTION Slides are reviewed. GROSS DESCRIPTION A - Received in fixative is one container labeled with the patient's name and designated left thumb soft tissue. The specimen consists of multiple irregular fragments of skin and soft tissue that in aggregate measure 2 x 0.5 x 0.3 cm. The largest piece is bisected. The entire specimen is submitted in one cassette. B - Received in fixative is one container labeled with the patient's name and designated left thumb bone. The specimen consists of two pieces of bone that in aggregate measure 0.5 x 0.3 x 0.1 cm. The entire specimen is submitted in one cassette after short decalcification. / FREDERICK:keagan 02/14/19 TC:2 CPT: 02036 x2, [id number]
--- NOTE | 2019-02-14 09:35 | CON.PCM_ITS ---
Reason for Consult Date of Consultation: 02/14/19 Reason for Consultation: Cat bite infection MP joint left thumb with ten osynovitis. REFERRING PHYSICIAN: Dr. Larson. AIRBRUSH ARTIST TECHNICAL: Dr. Arita. History of Present Illness: The patient is a 58 year old F who sustained a cat bite on her left thumb at the MP joint. [facility] and was started on Amoxicillin. She developed increasing pain and swelling and redness extending onto her distal forearm which prompted her to come to the ED last night. This is her house cat and is 6 years old. She hadn't noticed any behavioral changes in her cat recently. She had chills at home. In the ED the WBC was elevated at 11.9. She was afebrile. She complained of difficulty moving her left thumb secondary to increasing pain. X-ray was done which showed no fracture and no foreign body. She was admitted to the hospital and started on IV Zosyn. The WBC improved and the forearm redness has improved. However she still has increased pain in her left thumb at the MP joint and has difficulty moving it. I was asked to evaluate the patient for surgical options for treatment. Past Medical History Medical History: Medical History (Last Reviewed 02/13/19 @ 22:04 by Julián Larson MD) Arthritis M19.90 Hypertension I10 Allergies codeine Adverse Reaction (Verified 02/12/19 08:35) nausea/vomiting morphine Adverse Reaction (Verified 02/12/19 08:35) Nausea/Vom/Diarrhea Current Medications Hydrocodone Bitart/Acetaminophen ([place] 5mg-325mg) 1 tablet PO Q4H PRN PRN PRN Reason: Pain Score 4-10/10 Last Admin: 02/14/19 00:28 Dose: 1 tablet Documented by: Atenolol (Tenormin (Beta Bianca)) 25 mg PO DAILY [facility] Dextrose (D50w Syringe) 0 gm IV X1 PRN; Protocol PRN Reason: Hypoglycemia Glucagon () 1 mg IM .X1 PRN PRN Reason: Hypoglycemia Hydralazine HCl (Apresoline Iv) 5 mg IV Q4H PRN PRN PRN Reason: SBP > 160 Piperacillin Sod/Tazobactam (Sod 3.375 gm/ Sodium Chloride) 50 mls @ 12.5 mls/hr IV Q8 LILIYA Last Admin: 02/14/19 05:14 Dose: 12.5 mls/hr Documented by: Sodium Chloride () 250 mls @ 15 mls/hr IV .[id number] PRN PRN Reason: Saline Flush Last Infusion: 02/14/19 05:15 Dose: 0 mls/hr Documented by: Melatonin (Melatonin) 3 mg PO QHS PRN PRN PRN Reason: INSOMNIA Last Admin: 02/14/19 00:28 Dose: 3 mg Documented by: Ondansetron HCl (Zofran) 4 mg IV Q8H PRN PRN PRN Reason: NAUSEA/VOMITING Senna/Docusate Sodium (Senokot-S, Birttani-Colace) 2 tablet PO DAILY PRN PRN PRN Reason: CONSTIPATION Sodium Chloride () 10 - 40 ml IV UD PRN PRN Reason: SALINE FLUSH Last Admin: 02/14/19 05:14 Dose: 10 ml Documented by: Home Medications: Ambulatory Orders Medication Instructions Recorded atenolol 25 mg tablet 25 mg PO DAILY #90 tab 02/12/19 Surgical History: Surgical History (Last Reviewed 02/13/19 @ 22:04 by Julián Larson MD) History of neck surgery Z98.890 Lives: Spouse/ Significant Other Smoking Status: Never smoker Alcohol: Occasional - *Family History Maternal History Items: Cancer - Stomach to bone Paternal History Items: Heart Disease - His father had heart attack Review of Systems Comment: Constitutional: Reports: Chills, Fever - Low-grade fever. Denies: Weight Change. HEENT: Denies: Head Aches, Sinus Congestion, Sinus Drainage. Cardiovascular: Reports: Edema - Left hand. Denies: Chest Pain, Palpitations. Respiratory: Denies: Cough, Shortness of breath at rest, Sputum production. Gastrointestinal: Denies: Abdominal Pain, Nausea, Vomiting. Genitourinary: Quirino es: Dysuria. Musculoskeletal: Reports: Joint Pain - Left hand, Joint Tenderness - Left hand. Skin: Reports: Rash - Left hand, -. Denies: Wounds. Neurological: Denies: Numbness, Tingling, Focal weakness. Psychiatric: Denies: Anxiety, Depression, Homicidal Ideations, Suicidal Ideations. Hematologic/ Lymphatic: Denies: Easy Bruising, Easy Bleeding Patient Problems: Active and Suspected Problems (Last Reviewed 02/13/19 @ 22:04 by Julián Larson MD) Cat bite involving extremity (Acute) Cellulitis (Acute) - Physical Exam Vitals/I&O's: General: Alert, Oriented x3, Cooperative HEENT: PERRLA, EOMI. Throat is clear. Neck: Supple, Nontender. No cervical adenopathy. Lungs: Clear to auscultation. Cardiovascular: Regular rate. Abdomen: Soft, Nondistended. Extremities: FROM right upper extremity. Patient is right hand dominant. Moderate edema left thumb. Exquisite tenderness left thumb over the MP joint. Also passive extension and opposition of the thumb elicits severe tenderness. Two cat bite puncture wounds are seen, one on the dorsum of the left thumb at MP joint and on the volar radial aspect of the left thumb at MP joint. Puncture wounds are tender to palpation. Rest of left hand is soft with good range of motion. Fingers are warm with good capillary refill. Radial pulses are palpable. No axillary adenopathy. Neurological: Cranial nerves II-XII grossly intact. Psych/Mental Status: Normal Affect, Appropriate. Vital Signs Temp Pulse Resp BP Pulse Ox 98.3 F 64 16 114/77 94 02/14/19 05:00 02/14/19 05:00 02/14/19 05:00 02/14/19 05:00 02/14/19 08:26 Oxygen Delivery Method Room Air Weight: 118 lb 9.739 oz Body Mass Index (BMI) 22.0 Intake and Output for Last 24 Hours 02/12/19 02/13/19 02/14/19 23:59 23:59 23:59 Intake Total 50 / 50 0.25 / 0.25 Balance 50 / 50 0.25 / 0.25 Laboratory Results 02/13/19 20:10: WBC 11.9 H, RBC 4.77, Hgb 15.1 H, Hct 45.2, MCV 94.8, MCH 31.7, MCHC 33.4, RDW Std Deviation 45.2 H, RDW Coeff of Enrique 12.8, Plt Count 288, MPV 10.1, Immature Gran % (Auto) 0.400, Neut % (Auto) 70.9 H, Lymph % (Auto) 22.0, [place] % (Auto) 5.7, Eos % (Auto) 0.4, Baso % (Auto) 0.6, Absolute Neuts (auto) 8.5 H, Absolute Lymphs (auto) 2.63, Nucleated RBC % 0 02/13/19 20:10: Sodium 136, Potassium 3.4 L, Chloride 98, Carbon Dioxide 31.0, Anion Gap 7, BUN 12, Creatinine 0.86, Estim Creat Clear Calc 54.46, Est GFR (MDRD) Af Amer 87, Est GFR (MDRD) Non-Af 72, BUN/Creatinine Ratio 13.9, Glucose 99, Calcium 9.8 02/14/19 04:55: WBC 10.0, RBC 4.27, Hgb 13.3, Hct 40.4, MCV 94.6, MCH 31.1, MCHC 32.9, RDW Std Deviation 44.0 H, RDW Coeff of Enrique 12.8, Plt Count 252, MPV 10.1, Immature Gran % (Auto) 0.400, Neut % (Auto) 61.5, Lymph % (Auto) 27.1, [place] % (Auto) 9.3, Eos % (Auto) 1.0, Baso % (Auto) 0.7, Absolute Neuts (auto) 6.2, Absolute Lymphs (auto) 2.72, Nucleated RBC % 0 02/14/19 04:55: Sodium 136, Potassium 4.1, Chloride 103, Carbon Dioxide 30.0, Anion Gap 3 L, BUN 9, Creatinine 0.76, Estim Creat Clear Calc 61.63, Est GFR (MDRD) Af Amer 101, Est GFR (MDRD) Non-Af 84, BUN/Creatinine Ratio 11.9, Glucose 114 H, Calcium 8.9 Diagnostic Data Hand X-Ray 02/13/19 20:20 No acute fracture, dislocation or osseous destruction. Current Medications Hydrocodone Bitart/Acetaminophen ([place] 5mg-325mg) 1 tablet PO Q4H PRN PRN PRN Reason: Pain Score 4-10/10 Last Admin: 02/14/19 00:28 Dose: 1 tablet Documented by: Atenolol (Tenormin (Beta Bianca)) 25 mg PO DAILY LILIYA Dextrose (D50w Syringe) 0 gm IV X1 PRN; Protocol PRN Reason: Hypoglycemia Glucagon () 1 mg IM .X1 PRN PRN Reason: Hypoglycemia Hydralazine HCl (Apresoline Iv) 5 mg IV Q4H PRN PRN PRN Reason: SBP > 160 Piperacillin Sod/Tazobactam (Sod 3.375 gm/ Sodium Chloride) 50 mls @ 12.5 mls/hr IV Q8 LILIYA Last Admin: 02/14/19 05:14 Dose: 12.5 mls/hr Documented by: Sodium Chloride () 250 mls @ 15 mls/hr IV .[id number] PRN PRN Reason: Saline Flush Last Infusion: 02/14/19 05:15 Dose: 0 mls/hr Documented by: Melatonin (Melatonin) 3 mg PO QHS PRN PRN PRN Reason: INSOMNIA Last Admin: 02/14/19 00:28 Dose: 3 mg Documented by: Ondansetron HCl (Zofran) 4 mg IV Q8H PRN PRN PRN Reason: NAUSEA/VOMITING Senna/Docusate Sodium (Senokot-S, Brittani-Colace) 2 tablet PO DAILY PRN PRN PRN Reason: CONSTIPATION Sodium Chloride () 10 - 40 ml IV UD PRN PRN Reason: SALINE FLUSH Last Admin: 02/14/19 05:14 Dose: 10 ml Documented by: Assessment/Plan All Active Problems (Last Reviewed 02/13/19 @ 22:04 by Julián Larson MD) Cat bite involving extremity (Acute) Cellulitis (Acute) Cat bite of left hand (Acute) 1. Cat bite infection left thumb at MP joint. 2. Tenosynovitis left thumb. Patient has a severe rapidly progressing cat bite infection involving her left thumb. One bite wound is on the dorsum of the left thumb over the MP joint. The other bite wound is on the volar radial aspect left thumb over MP joint. Patient is right hand dominant. She presented with cellulitis extending onto her distal forearm. Since the Zosyn IV antibiotics were started, the redness has improved. However, in the areas of the bite wounds, she has exquisite tenderness especially with passive extension and opposition. Her left thumb remains swollen with improvement in the swelling in the rest of the left hand. She has clinical evidence of tenosynovitis. Also because of the presence of the bite wound on the dorsum of the left thumb at the MP joint, there is risk that the cat bite puncture penetrated the joint. If the joint is involved, bone will be biopsied to evaluate for osteomyelitis. Depending on what is found at the time of surgery, IV antibiotics may be necessary in which case a PICC line will be placed. She states the cat is hers and is mostly a house cat, but is allowed to go outside. So there is a feral component to the cat bite infection. Because of that reason and also because of the persistent severity of her pain involving her left thumb, it was recommended to the patient to proceed with urgent operative intervention today with incision and drainage and excisional debridement of her cat bite infection. Will open up both bite wounds on the dorsum and volar aspect of the left thumb. The wounds will be left open and wound care started with Silver dressing changes daily. I also suspect clinical tenosynovitis, so I will check the tendon sheath as well for infection. After discharge, she will need OT for a thumb spica silastic splint to keep the thumb abducted to minimize scar contracture of the first web space. She will also need OT for aggressive range of motion exercises, strengthening, and edema management. Tissue that is removed will be sent to Pathology for analysis to rule out carcinoma and to Microbiology for culture. A positive culture will necessitate antibiotic therapy. The surgery needs to be done urgently today to minimize worsening of the infection and spreading of the infection to the rest of the hand which would increase stiffness and would decrease the ultimate function of the hand. Patient voices understanding and wishes to proceed. Patient was informed of the risks and complications of the procedure including alternatives to surgery. These were discussed with the patient personally. Patient voices understanding and wishes to proceed. Some of the risks and complications that were discussed included but were not inclusive of failure to diagnose including symptom relief, pain, infection, numbness, stiffness, loss of digit, RSD (CRPS), need for further surgery, contracture, and wound healing problems. Code Visit Inpatient E&M: 92792 Init Hosp L3 - -57 Modifier ICD-10 - W55.01xA, S61.052A, L03.90, M65.142
--- NOTE | 2019-02-14 09:44 | NURSING ---
In to see patient with Dr Arita. pt has a puncture site to the left thumb both the palmar and dorsal surfaces. there is some mild redness noted as well as some edema. Dr Arita plans to take patient down to OR this am for an I&D. will assist with packing as needed post op.
[2019-02-14] MEDS: Atenolol 25 MG Tablet PO (09:50)
[2019-02-14] MEDS: Lactated Ringers 1,000 ML 100 ML IV (10:05)
--- NOTE | 2019-02-14 10:27 | PCM.HP.ID ---
Reason for Consult: cat bite Consulted by: Dr. Donovan History of Present Illness: The patient is a 58 year old F got bit on L hand 3-4 days ago by her cat. Cat is indoor/outdoor, up to date on shots, has been acting normally. She got bit over L thenar eminence, wound had bleeding, washed with soap and water, used peroxide. Went to urgent care 8 hours later, given amoxicillin. Redness spread, had some pus drain from the palmar surface. No fever or chills. Came to ED, admitted on zosyn. Redness improved today, no further drainage, going to OR this AM with Dr. Arita. Full ROS performed and neg except as noted above. - Medical History Surgical History: reviewed Allergies/Adverse Reactions: Allergies codeine Adverse Reaction (Verified 02/12/19 08:35) nausea/vomiting morphine Adverse Reaction (Verified 02/12/19 08:35) Nausea/Vom/Diarrhea Home Medications: Ambulatory Orders Medication Instructions Recorded atenolol 25 mg tablet 25 mg PO DAILY #90 tab 02/12/19 - Social History SMOKING STATUS:: Never smoker Vital Signs Temp Pulse Resp BP Pulse Ox 98.1 F 69 14 150/95 H 100 02/14/19 09:50 02/14/19 09:50 02/14/19 09:50 02/14/19 09:50 02/14/19 09:50 Oxygen Delivery Method Room Air Weight: 53.8 kg Body Mass Index (BMI) 22.0 Laboratory Tests Past 24 Hrs 02/13/19 02/13/19 02/14/19 20:10 20:10 04:55 WBC 11.9 H 10.0 RBC 4.77 4.27 Hgb 15.1 H 13.3 Hct 45.2 40.4 MCV 94.8 94.6 MCH 31.7 31.1 MCHC 33.4 32.9 RDW Std Deviation 45.2 H 44.0 H RDW Coeff of Enrique 12.8 12.8 Plt Count 288 252 MPV 10.1 10.1 Immature Gran % (Auto) 0.400 0.400 Neut % (Auto) 70.9 H 61.5 Lymph % (Auto) 22.0 27.1 [place] % (Auto) 5.7 9.3 Eos % (Auto) 0.4 1.0 Baso % (Auto) 0.6 0.7 Absolute Neuts (auto) 8.5 H 6.2 Absolute Lymphs (auto) 2.63 2.72 Nucleated RBC % 0 0 Sodium 136 Potassium 3.4 L Chloride 98 Carbon Dioxide 31.0 Anion Gap 7 BUN 12 Creatinine 0.86 Estim Creat Clear Calc 54.46 Est GFR (MDRD) Af Amer 87 Est GFR (MDRD) Non-Af 72 BUN/Creatinine Ratio 13.9 Glucose 99 Calcium 9.8 02/14/19 04:55 WBC RBC Hgb Hct MCV MCH MCHC RDW Std Deviation RDW Coeff of Enrique Plt Count MPV Immature Gran % (Auto) Neut % (Auto) Lymph % (Auto) [place] % (Auto) Eos % (Auto) Baso % (Auto) Absolute Neuts (auto) Absolute Lymphs (auto) Nucleated RBC % Sodium 136 Potassium 4.1 Chloride 103 Carbon Dioxide 30.0 Anion Gap 3 L BUN 9 Creatinine 0.76 Estim Creat Clear Calc 61.63 Est GFR (MDRD) Af Amer 101 Est GFR (MDRD) Non-Af 84 BUN/Creatinine Ratio 11.9 Glucose 114 H Calcium 8.9 - Other Studies Radiology: [] reviewed Other Studies: [] Route of nutrition/ use of supplements: [] Nutritional Intake: [] IV Site: [] Das Catheter: [] - Physical Exam General: Alert, Oriented x3, Cooperative, No apparent distress HEENT: Atraumatic, PERRLA, EOMI Neck: Supple, No Nodes Lungs: Clear to auscultation, Normal air movement Cardiovascular: Regular rate, Regular Rhythm, No murmurs Abdomen: Soft, Non Tender, Non-Distended Extremities: Edema - L hand Skin: - - Redness and swelling, pain and warmth in L hand. IV Site: Peripheral Neurological: Cranial nerves II-XII grossly intact - Assessment/Plan Antibiotics: [] Assessment/Plan: [] Active and Suspected Problems (Last Reviewed 02/13/19 @ 22:04 by Julián Larson MD) Cat bite involving extremity (Acute) Cellulitis (Acute) L hand infection due to cat bite - OR today with Dr. Arita. Reported redness improved with zosyn. Had been on amoxicillin prior to admit. Will narrow zosyn to unasyn. Will follow, thank you.
--- NOTE | 2019-02-14 11:26 | CASEMGMT ---
CM assessment is deferred at this time d/t pt out of the dept in the OR at this time. Will attempt again later or tomorrow, if necessary. SStaten RN CM
--- NOTE | 2019-02-14 12:07 | OP.PCM_ITS ---
Report of Operation Date of Procedure: 02/14/19 Pre-Operative Diagnosis: 1. Cat bite infection left thumb at MP joint. 2. Tenosynovitis left thumb. Post-Operative Diagnosis: 1. Cat bite infection abscess left thumb at MP joint. 2. Inflammatory flexor tenosynovitis left thumb from cat bite infection abscess. 3. Septic MP joint left thumb from cat bite infection abscess. 4. Early clinical osteomyelitis MP joint left thumb. Surgery/Procedure Performed:: 1. Surgical preparation dorsal aspect and volar radial aspect left thumb at MP joint with incision and drainage and excisional debridement cat bite infection abscess. 2. Arthrotomy and drainage septic MP joint left thumb from cat bite infection abscess. 3. Partial ostectomy metacarpal head at MP joint left thumb for osteomyelitis. 4. Incision and drainage tendon sheath for inflammatory flexor tenosynovitis left thumb from cat bite infection. Description of Surgical Findings:: The patient is a 58 year old F who sustained a cat bite on her left thumb at the MP joint. [facility] and was started on Amoxicillin. She developed increasing pain and swelling and redness extending onto her distal forearm which prompted her to come to the ED last night. This is her house cat and is 6 years old. She hadn't noticed any behavioral changes in her cat recently. She had chills at home. In the ED the WBC was elevated at 11.9. She was afebrile. She complained of difficulty moving her left thumb secondary to increasing pain. X-ray was done which showed no fracture and no foreign body. She was admitted to the hospital and started on IV Zosyn. The WBC improved and the forearm redness has improved. However she still has increased pain in her left thumb at the MP joint and has difficulty moving it. I was asked to evaluate the patient for surgical options for treatment. The surgery needs to be done urgently today to minimize worsening of the infection and spreading of the infection to the rest of the hand which would increase stiffness and would decrease the ultimate function of the hand. Patient voices understanding and wishes to proceed. Patient was informed of the risks and complications of the procedure including alternatives to surgery. These were discussed with the patient personally. Patient voices understanding and wishes to proceed. Some of the risks and complications that were discussed included but were not inclusive of failure to diagnose including symptom relief, pain, infection, numbness, stiffness, loss of digit, RSD (CRPS), need for further surgery, contracture, and wound healing problems. Total tourniquet time - 70 minutes. Size of defect dorsal aspect left thumb at MP joint - 2 x 0.7 cm. Size of defect volar radial aspect left thumb at MP joint - 1 x 1 cm. Length of zig zag wounds dorsum left thumb - 1 cm. Length of zig zag wound volar left thumb - 5 cm. sugar controller: None Type of Anesthesia:: General Specimen's removed: 1. Cat bite infection abscess left thumb at MP joint soft tissue to Pathology and Microbiology. 2. Cat bite infection abscess left thumb at MP joint bone (metacarpal head) to Pathology and Microbiology. 3. MRSA Wound DNA by PCR. Drains: None. Estimated Blood Loss (mL): 5 ml. Description of Procedure: Patient was taken to OR in supine position and was placed under general anesthesia. The left hand was prepped and draped in the usual fashion. SCD's were placed for DVT prophylaxis. Perioperative antibiotics were given intravenously. The left hand was elevated and compression was obtained with a towel as the tourniquet was elevated to 250 mmHg. I did not use an Esmarch bandage as I didn't want to spread the infection. Under loupe magnification, I made a circular incision around the cat bite puncture wound on the volar radial aspect left thumb at MP joint. Dissection was carried down to the muscle. There was injury through the muscles (abductor pollicis brevis and opponens pollicis) down to the bone, the metacarpal head. Some fat necrosis was present. The fat necrosis was excised and debrided. The overlying skin involving the cat bite puncture wound was also excised and debrided. No pus was seen on the volar surface. Clinically she had a flexor tenosynovitis, so I extended the incision on the volar surface in a zig zag fashion both proximally and distally to expose the flexor tendon sheath. Proximally there was no evidence of spread of the infection into the thenar muscles. Distally at the proximal edge of the flexor tendon sheath, there was presence of swelling in the tendon sheath and inflammatory bubbles in the tendon sheath. No gross pus was seen yet in the tendon sheath indicating an inflammatory flexor tenosynovitis. I incised the A1 faye to allow placement of a catheter into the tendon sheath for saline irrigation. Also, by incising the A1 faye, I don't have to worry about a trigger thumb in the future that may be a difficult surgery because of the expected scarring that will occur from this cat bite infection. I copiously irrigated the flexor tendon sheath with saline until the drainage was clear. I also placed the catheter distally at the distal edge of the flexor tendon sheath at the IP joint and copiously irrigated the flexor tendon sheath with saline until the drainage was clear. I then proceeded with a circular incision around the cat bite puncture wound on the dorsal aspect left thumb at MP joint. Dissection was carried down to the tendon at the MP joint. Some fat necrosis was present. The fat necrosis was excised and debrided. The overlying skin involving the cat bite puncture wound was also excised and debrided. There was injury between the extensor tendons (extensor pollicis brevis and extensor pollicis longus) just proximal to MP joint and extended down to the metacarpal bone. There was swelling of the surrounding tissue present. I explored the tract of the puncture wound distally toward the MP joint. It was hard to flex the MP joint secondary to increased swelling. There was concern about whether there was joint involvement. Some of the capsular tissue was swollen and was excised and debrided. An arthrotomy was performed in the MP joint and copious amounts of pus was seen. I checked an MRSA Wound DNA by PCR from this pus. The rest of the pus will be sent with some of the soft tissue to Microbiology for culture. A positive culture will necessitate antibiotic therapy. The MP joint was copiously irrigated with saline until no more pus was seen. Since the cat bite puncture wound extended to the metacarpal bone at the metacarpal head, there was some palpable irregularity in the bone. A partial ostectomy was done with rongeurs of the metacarpal head to evaluate for osteomyelitis. A rasp was used to smooth out the bony edges. Half the soft tissue and half the bone will be sent to Pathology for analysis to rule out carcinoma and to evaluate for osteomyelitis. Half the soft tissue and half the bone will be sent to Microbiology for culture. A positive culture will necessitate antibiotic therapy. Depending on how she responds postoperatively, IV antibiotics may be needed mcc after discharge. Infectious Diseases has been consulted to help with antibiotic management. Upon admission, she was started on Zosyn. I also extended the dorsal wound proximally and distally in a zig zag fashion to look for extension of the infection involving the tendons. No further pus was seen, just fat necrosis from the cat bite infection that was excised and debrided also and sent with the other tissue to Pathology and Microbiology. The tourniquet was released after 70 minutes. Hemostasis was obtained with electrocautery and gauze compression and elevation. I closed the zig and the zag points with 5-0 Nylon vertical mattress interrupted sutures. The rest of the lengths of the zig zag wounds were left open to allow drainage and to allow packing with Silver dressings. The wounds where the cat bite puncture wounds were located were also left open. I dressed the wounds with Mepitel nonadherent dressing followed by 2x2 gauze and Betadine followed by 4x4 gauze and Kerlix gauze. I then placed a thumb spica plaster splint to keep the thumb abducted to minimize contracture of the first web space. An crow wrap was placed over the thumb spica plaster splint for compression. The size of the defect dorsal aspect left thumb at MP joint was 2 x 0.7 cm. The size of the defect volar radial aspect left thumb at MP joint was 1 x 1 cm. The length of the zig zag wounds dorsum left thumb was 1 cm. The length of the zig zag wounds volar left thumb was 5 cm. Patient tolerated the procedure well and was sent to PACU in satisfactory condition. Patient will be sent upstairs for continued postop care. Silver dressing changes will be started tomorrow. I anticipate she will need IV analgesia for a couple of days. Anticipating the need for possible IV antibiotics after discharge, a PICC line will be placed. After discharge, will have her go to OT for a silastic thumb spica splint as well as range of motion exercises, strengthening, and edema management. Will discuss with the patient and her family postoperatively that close followup will be necessary. If improvement is not seen, she will need further operative intervention with additional drainage and washout of the MP joint. Grafts/Implants Used: None. - Complications None. - Admit VTE Documentation VTE Present on Admission: No VTE Mechan Device Prophylaxis: SCD's VTE Pharm Prophylaxis ordered?: No Code Visit Surgery Charges CPT - 33926 ICD-10 - W55.01xA, S61.052A, L02.512, M65.142, M00.9, M86.9 70314 W55.01xA, S61.052A, L02.512, M65.142, M00.9, M86.9 69708 W55.01xA, S61.052A, M00.9, L02.512, M65.142, M86.9 86198 W55.01xA, S61.052A, M65.142, L02.512, M00.9, M86.9 40842 W55.01xA, S61.052A, M86.9, L02.512, M65.142, M00.9
--- NOTE | 2019-02-14 12:54 | PCM.PROGNOTE ---
Patient Problems: Active and Suspected Problems (Last Reviewed 02/13/19 @ 22:04 by Julián Larson MD) Cat bite involving extremity (Acute) Cellulitis (Acute) Subjective: Patient seen and examined. Went to OR with Dr. Arita earlier today. Postop dressing intact. Pain well controlled. Patient complains of mild nausea. - Physical Exam Vitals/I&O's: Vital Signs Temp Pulse Resp BP Pulse Ox 96.9 F L 73 16 168/91 H 96 02/14/19 12:47 02/14/19 12:47 02/14/19 12:47 02/14/19 12:47 02/14/19 12:47 Oxygen Delivery Method Room Air Weight: 118 lb 9.739 oz Body Mass Index (BMI) 22.0 Intake and Output for Last 24 Hours 02/12/19 02/13/19 02/14/19 23:59 23:59 23:59 Intake Total 50 / 50 1250.25 / 1250.25 Balance 50 / 50 1250.25 / 1250.25 General: Alert, Oriented x3, Cooperative HEENT: Atraumatic, PERRLA, EOMI, Normocephalic Neck: Supple, No JVD, Negative Carotid Bruits Lungs: Clear to auscultation, Normal air movement Cardiovascular: Regular rate, Regular Rhythm, Normal S1, Normal S2, No murmurs Abdomen: Bowel Sounds Present, Soft, Non Tender, Non-Distended Extremities: No clubbing, No cyanosis, No edema, Capillary Refill Less than 3 Seconds Skin: - - Left hand postop dressing clean dry and intact. Musculoskeletal: No Tenderness to Palpation of Joints or Extremities Neurological: Cranial nerves II-XII grossly intact, Neuro grossly intact Psych/Mental Status: Normal Affect, Appropriate Laboratory Results 02/13/19 20:10: WBC 11.9 H, RBC 4.77, Hgb 15.1 H, Hct 45.2, MCV 94.8, MCH 31.7, MCHC 33.4, RDW Std Deviation 45.2 H, RDW Coeff of Enrique 12.8, Plt Count 288, MPV 10.1, Immature Gran % (Auto) 0.400, Neut % (Auto) 70.9 H, Lymph % (Auto) 22.0, [place] % (Auto) 5.7, Eos % (Auto) 0.4, Baso % (Auto) 0.6, Absolute Neuts (auto) 8.5 H, Absolute Lymphs (auto) 2.63, Nucleated RBC % 0 02/13/19 20:10: Sodium 136, Potassium 3.4 L, Chloride 98, Carbon Dioxide 31.0, Anion Gap 7, BUN 12, Creatinine 0.86, Estim Creat Clear Calc 54.46, Est GFR (MDRD) Af Amer 87, Est GFR (MDRD) Non-Af 72, BUN/Creatinine Ratio 13.9, Glucose 99, Calcium 9.8 02/14/19 04:55: WBC 10.0, RBC 4.27, Hgb 13.3, Hct 40.4, MCV 94.6, MCH 31.1, MCHC 32.9, RDW Std Deviation 44.0 H, RDW Coeff of Enrique 12.8, Plt Count 252, MPV 10.1, Immature Gran % (Auto) 0.400, Neut % (Auto) 61.5, Lymph % (Auto) 27.1, [place] % (Auto) 9.3, Eos % (Auto) 1.0, Baso % (Auto) 0.7, Absolute Neuts (auto) 6.2, Absolute Lymphs (auto) 2.72, Nucleated RBC % 0 02/14/19 04:55: Sodium 136, Potassium 4.1, Chloride 103, Carbon Dioxide 30.0, Anion Gap 3 L, BUN 9, Creatinine 0.76, Estim Creat Clear Calc 61.63, Est GFR (MDRD) Af Amer 101, Est GFR (MDRD) Non-Af 84, BUN/Creatinine Ratio 11.9, Glucose 114 H, Calcium 8.9 02/14/19 11:01: S.aureus Protein A PCR Pending, MRSA (PCR) Pending Current Medications Hydrocodone Bitart/Acetaminophen ([place] 5mg-325mg) 1 tablet PO Q4H PRN PRN PRN Reason: Pain Score 4-10/10 Last Admin: 02/14/19 00:28 Dose: 1 tablet Documented by: Atenolol (Tenormin (Beta Bianca)) 25 mg PO DAILY LILIYA Last Admin: 02/14/19 09:50 Dose: 25 mg Documented by: Dextrose (D50w Syringe) 0 gm IV X1 PRN; Protocol PRN Reason: Hypoglycemia Glucagon () 1 mg IM .X1 PRN PRN Reason: Hypoglycemia Hydralazine HCl (Apresoline Iv) 5 mg IV Q4H PRN PRN PRN Reason: SBP > 160 Hydromorphone HCl (Dilaudid Inj) 1 mg IV Q3H PRN PRN PRN Reason: Pain Score 6-10/10 Sodium Chloride () 250 mls @ 15 mls/hr IV .[id number] PRN PRN Reason: Saline Flush Last Infusion: 02/14/19 05:15 Dose: 0 mls/hr Documented by: Lactated Ringer's () 1,000 mls @ 100 mls/hr IV .Q10H LILIYA Last Infusion: 02/14/19 12:50 Dose: Infused Documented by: Ampicillin Sodium/Sulbactam (Sodium 3 gm/ Sodium Chloride) 112 mls @ 150 mls/hr IV Q8 LILIYA Melatonin (Melatonin) 3 mg PO QHS PRN PRN PRN Reason: INSOMNIA Last Admin: 02/14/19 00:28 Dose: 3 mg Documented by: Ondansetron HCl (Zofran) 4 mg IV Q8H PRN PRN PRN Reason: NAUSEA/VOMITING Senna/Docusate Sodium (Senokot-S, Brittani-Colace) 2 tablet PO DAILY PRN PRN PRN Reason: CONSTIPATION Sodium Chloride () 10 - 40 ml IV UD PRN PRN Reason: SALINE FLUSH Last Admin: 02/14/19 09:50 Dose: 10 ml Documented by: Medical Necessity - Tobacco Use Smoking Status: Never smoker Assessment/Plan All Active Problems (Last Reviewed 02/13/19 @ 22:04 by Julián Larson MD) Cat bite involving extremity (Acute) Cellulitis (Acute) Cat bite of left hand (Acute) 1. Left thumb and hand cellulitis with left thumb abscess and early osteomyelitis MP joint left thumb secondary to cat bite-ID and plastic surgery on consult. Patient underwent incision and drainage and excisional debridement of abscess left thumb, arthrotomy and drainage septic MP joint left thumb and partial ostectomy metacarpal head at MP joint left thumb for osteomyelitis. Continue IV Unasyn. PRN pain regimen. Wound RN consult. Cultures pending. 2. Hypertension-stable, continue home atenolol regimen. As needed hydralazine for systolic blood pressure greater than 160. DVT prophylaxis-SCDs. This patient was seen by RHINA Lentz under the supervision of Dr. Donovan.
[2019-02-14] MEDS: Ondansetron 4 MG/2 ML Vial IV (13:28)
--- NOTE | 2019-02-14 13:43 | CASEMGMT ---
Pt is back from OR at this time but is sleeping without distress at this time. is at bedside but this RN CM will attempt again later. [place] RN CM
--- NOTE | 2019-02-14 13:50 | CASEMGMT ---
KERRI IBRAHIM assessment: Face to Face with patient for initial transition planning/care coordination assessment. KERRI IBRAHIM introduced self and role at [facility], pt voices understanding and consents to assessment at this time. Pt is sitting up in bed in no distress at this time. Pt is A/Ox4 at this time and answers all questions appropriately at this time. Pt's is at bedside during assessment. Care providers, pharmacy, and demographics verified/updated at this time. PCP: Asif Webb Specialists: Shaye spreader in [place] Preferred Pharmacy: [facility] Insurance: [facility] Prescription Benefit: [facility] Living Will/HPOA: Pt states has HPOA/LW and states that they are not on file at [facility] at this time. Pt states that her , Dewey Aparicio, is HPOA. LNOK: Dewey Aparicio, ; Pati Aparicio, daughter Living Arrangements: Pt states lives with in 2 story home and states no concerns at home at this time Pt states is independent with ADL's. Transportation: Pt states she drives and states no transportation concerns at this time. DME/HHC: Pt states no current DME or need for any at this time. Pt states no hx of HHC or SNF in the past. CM to follow for cultures and possible iv antibx at discharge. Pt states no concerns with going home at time of discharge. Pt is unemployed. Pt states does not smoke but does drink ETOH socially. Pt states no further concerns/needs at this time. CM to follow for any further discharge planning/needs. Advised pt/ to ask for CM if any further questions/concerns/needs arise, voices understanding. Pt Goal: Home Plan: Home [place] KERRI IBRAHIM
[2019-02-14 14:28] LABS: M R Staph aureus DNA By PCR Negative (Negative); Probe Check PASS; Specimen Processing Control PASS; Staph aureus DNA By PCR NEGATIVE (Negative)
--- NOTE | 2019-02-14 15:11 | NURSING ---
history faculty member at bedside
[2019-02-15] MEDS: 0.9% Saline Lock 10 ML Syringe IV ×4 (04:59→20:52)
[2019-02-15 05:19] VITALS: BP 134/76; PULSE 70; RESP 16; TEMP 36.9; O2SAT 99
[2019-02-15 05:23] LABS: Hematocrit 36.2 % (37-47); Mean Corp Hgb Conc 33.1 g/dL (32-36); Mean Corpuscular Hgb 31.3 pg (27.0-32.0); Mean Corpuscular Volume 94.5 fL (81-99); Platelet Count 238 K/mm3 (150-450); RBC Distribution Width SD 44.8 fl (35.1-43.9); Red Blood Count 3.83 M/mm3 (4.2-5.4); White Blood Count 16.2 K/mm3 (4.4-11.0)
[2019-02-15 05:42] LABS: Erythrocyte Sedimentation Rate 35 mm/hr (0-30)
[2019-02-15 05:46] LABS: ALB/GLOB Ratio 0.9 RATIO (0.9-2.4); AST(SGOT) 18 U/L (15-37); Alanine Aminotransfer ALT/SGPT 22 U/L (13-56); Albumin, Serum 3.5 g/dL (3.2-5.0); Alkaline Phosphatase 60 U/L (45-117); Anion Gap 6 (5-15); BUN 13 mg/dL (7-18); BUN/Creat Ratio 18.8 RATIO (10-20); Calcium,Total 8.9 mg/dL (8.5-10.1); Chloride 103 mmol/L (98-107); Creatinine, Serum 0.69 mg/dL (0.55-1.02); EST Glomerular Filtration Rate 93 mL/min (>60); Est Glom Filt Rate - Afr Amer 112 mL/min (>60); Estimated Creatinine Clearance 67.88 ml/min; Globulin 3.7 g/dL (2.2-4.2); Glucose 108 mg/dL (74-106); Potassium 3.8 mmol/L (3.5-5.1); Prealbumin 18.2 mg/dL (20.0-40.0); Protein, Total 7.2 g/dL (6.4-8.2); Sodium Level 138 mmol/L (136-145)
[2019-02-15 08:24] VITALS: BP 147/97; PULSE 68; RESP 18; TEMP 36.8
[2019-02-15] MEDS: HYDROmorphone 1 MG/ML Syringe IV (09:21)
--- NOTE | 2019-02-15 10:18 | NURSING ---
wound photo: left hand
--- NOTE | 2019-02-15 10:19 | NURSING ---
wound photo: left hand
[2019-02-15] MEDS: Atenolol 25 MG Tablet PO (11:30)
--- NOTE | 2019-02-15 13:35 | PN_ITS ---
Patient Problems: Active and Suspected Problems (Last Reviewed 02/13/19 @ 22:04 by Julián Larson MD) Cat bite involving extremity (Acute) Cellulitis (Acute) Subjective: Patient seen and examined. Underwent left hand dressing change this morning with wound RN and Dr. Arita. Patient reports she tolerated well however having increased throbbing of her left hand. Denies fever, chills. Denies other current complaints. - Physical Exam Vitals/I&O's: Vital Signs Temp Pulse Resp BP Pulse Ox 98.2 F 68 18 147/97 H 99 02/15/19 08:24 02/15/19 08:24 02/15/19 08:24 02/15/19 08:24 02/15/19 05:19 Oxygen Delivery Method Room Air Weight: 118 lb 9.739 oz Body Mass Index (BMI) 22.0 Intake and Output for Last 24 Hours 02/13/19 02/14/19 02/15/19 23:59 23:59 23:59 Intake Total 50 / 50 2291.50 / 2291.50 125.25 / 125.25 Balance 50 / 50 2291.50 / 2291.50 125.25 / 125.25 General: Alert, Oriented x3, Cooperative HEENT: Atraumatic, PERRLA, EOMI, Normocephalic Neck: Supple, No JVD, Negative Carotid Bruits Lungs: Clear to auscultation, Normal air movement Cardiovascular: Regular rate, Regular Rhythm, Normal S1, Normal S2, No murmurs Abdomen: Bowel Sounds Present, Soft, Non Tender, Non-Distended Extremities: No clubbing, No cyanosis, No edema, Capillary Refill Less than 3 Seconds Skin: - - Left hand dressing clean dry and intact. Musculoskeletal: No Tenderness to Palpation of Joints or Extremities Neurological: Cranial nerves II-XII grossly intact, Neuro grossly intact Psych/Mental Status: Normal Affect, Appropriate Microbiology Past 72 Hours 02/14/19 11:01 Bone - Other Gram Stain - Final 02/14/19 11:01 Bone - Other Wound Culture - Preliminary No growth-Final to follow 02/14/19 11:01 Tissue - Other Gram Stain - Final 02/14/19 11:01 Tissue - Other Wound Culture - Preliminary Gram Positive Cocci Laboratory Results 02/14/19 11:01: S.aureus Protein A PCR NEGATIVE, MRSA (PCR) Negative 02/15/19 05:10: WBC 16.2 H, RBC 3.83 L, Hgb 12.0, Hct 36.2 L, MCV 94.5, MCH 31.3, MCHC 33.1, RDW Std Deviation 44.8 H, RDW Coeff of Enrique 13.0, Plt Count 238, MPV 10.0, ESR 35 H 02/15/19 05:10: Sodium 138, Potassium 3.8, Chloride 103, Carbon Dioxide 29.0, Anion Gap 6, BUN 13, Creatinine 0.69, Estim Creat Clear Calc 67.88, Est GFR (MDRD) Af Amer 112, Est GFR (MDRD) Non-Af 93, BUN/Creatinine Ratio 18.8, Glucose 108 H, Calcium 8.9, Total Bilirubin 0.50, AST 18, ALT 22, Alkaline Phosphatase 60, C-React Prot Ext Range 19.40 H, Total Protein 7.2, Albumin 3.5, Globulin 3.7, Albumin/Globulin Ratio 0.9, Prealbumin 18.2 L Current Medications Hydrocodone Bitart/Acetaminophen ([place] 5mg-325mg) 1 tablet PO Q4H PRN PRN PRN Reason: Pain Score 4-1010 Last Admin: 02/14/19 00:28 Dose: 1 tablet Documented by: Atenolol (Tenormin (Beta Bianca)) 25 mg PO DAILY LILIYA Last Admin: 02/15/19 11:30 Dose: 25 mg Documented by: Dextrose (D50w Syringe) 0 gm IV X1 PRN; Protocol PRN Reason: Hypoglycemia Glucagon () 1 mg IM .X1 PRN PRN Reason: Hypoglycemia Hydralazine HCl (Apresoline Iv) 5 mg IV Q4H PRN PRN PRN Reason: SBP > 160 Hydromorphone HCl (Dilaudid Inj) 1 mg IV Q3H PRN PRN PRN Reason: Pain Score 6-10/10 Last Admin: 02/15/19 09:21 Dose: 1 mg Documented by: Sodium Chloride () 250 mls @ 15 mls/hr IV .[id number] PRN PRN Reason: Saline Flush Last Infusion: 02/15/19 06:38 Dose: 0 mls/hr Documented by: Ampicillin Sodium/Sulbactam (Sodium 3 gm/ Sodium Chloride) 112 mls @ 150 mls/hr IV Q8 LIILYA Last Infusion: 02/15/19 05:44 Dose: Infused Documented by: Melatonin (Melatonin) 3 mg PO QHS PRN PRN PRN Reason: INSOMNIA Last Admin: 02/14/19 00:28 Dose: 3 mg Documented by: Ondansetron HCl (Zofran) 4 mg IV Q8H PRN PRN PRN Reason: NAUSEA/VOMITING Last Admin: 02/14/19 13:28 Dose: 4 mg Documented by: Polyethylene Glycol (Miralax) 17 gm PO DAILY LILIYA Last Admin: 02/15/19 11:31 Dose: Not Given Documented by: Senna/Docusate Sodium (Senokot-S, Brittani-Colace) 2 tablet PO DAILY PRN PRN PRN Reason: CONSTIPATION Sodium Chloride () 10 - 40 ml IV UD PRN PRN Reason: SALINE FLUSH Last Admin: 02/15/19 09:21 Dose: 10 ml Documented by: Medical Necessity - Tobacco Use Smoking Status: Never smoker Assessment/Plan All Active Problems (Last Reviewed 02/13/19 @ 22:04 by Julián Larson MD) Cat bite involving extremity (Acute) Cellulitis (Acute) Cat bite of left hand (Acute) 1. Left thumb and hand cellulitis with left thumb abscess and early osteomyelitis MP joint left thumb secondary to cat bite-ID and plastic surgery on consult. Patient underwent incision and drainage and excisional debridement of abscess left thumb, arthrotomy and drainage septic MP joint left thumb and partial ostectomy metacarpal head at MP joint left thumb for osteomyelitis 02/14/19. Continue IV Unasyn. PRN pain regimen. Wound RN consult. Cultures pending. 2. Hypertension-stable, continue home atenolol regimen. As needed hydralazine for systolic blood pressure greater than 160. DVT prophylaxis-SCDs. This patient was seen by RHINA Lentz under the supervision of Dr. Donovan.
--- NOTE | 2019-02-15 13:36 | PN.ID_ITS ---
Patient Problems: Active and Suspected Problems (Last Reviewed 02/13/19 @ 22:04 by Julián Larson MD) Cat bite involving extremity (Acute) Cellulitis (Acute) Subjective: Feeling ok, some nausea after dilaudid, no fever. - Physical Exam Vitals/I&O's: Vital Signs Temp Pulse Resp BP Pulse Ox 98.2 F 68 18 147/97 H 99 02/15/19 08:24 02/15/19 08:24 02/15/19 08:24 02/15/19 08:24 02/15/19 05:19 Oxygen Delivery Method Room Air Weight: 53.8 kg Body Mass Index (BMI) 22.0 Intake and Output for Last 24 Hours 02/13/19 02/14/19 02/15/19 23:59 23:59 23:59 Intake Total 50 / 50 2291.50 / 2291.50 125.25 / 125.25 Balance 50 / 50 2291.50 / 2291.50 125.25 / 125.25 General: Alert, Cooperative, No apparent distress Lungs: Clear to auscultation, Normal air movement Cardiovascular: Regular rate, Regular Rhythm Abdomen: Soft, Non Tender, Non-Distended Skin: Ulcer/ Wound - hand wrapped, reviewed photo Microbiology Past 72 Hours 02/14/19 11:01 Bone - Other Gram Stain - Final 02/14/19 11:01 Bone - Other Wound Culture - Preliminary No growth-Final to follow 02/14/19 11:01 Tissue - Other Gram Stain - Final 02/14/19 11:01 Tissue - Other Wound Culture - Preliminary Gram Positive Cocci Laboratory Results 02/14/19 11:01: S.aureus Protein A PCR NEGATIVE, MRSA (PCR) Negative 02/15/19 05:10: WBC 16.2 H, RBC 3.83 L, Hgb 12.0, Hct 36.2 L, MCV 94.5, MCH 31.3, MCHC 33.1, RDW Std Deviation 44.8 H, RDW Coeff of Enrique 13.0, Plt Count 238, MPV 10.0, ESR 35 H 02/15/19 05:10: Sodium 138, Potassium 3.8, Chloride 103, Carbon Dioxide 29.0, Anion Gap 6, BUN 13, Creatinine 0.69, Estim Creat Clear Calc 67.88, Est GFR (MDRD) Af Amer 112, Est GFR (MDRD) Non-Af 93, BUN/Creatinine Ratio 18.8, Glucose 108 H, Calcium 8.9, Total Bilirubin 0.50, AST 18, ALT 22, Alkaline Phosphatase 60, C-React Prot Ext Range 19.40 H, Total Protein 7.2, Albumin 3.5, Globulin 3.7, Albumin/Globulin Ratio 0.9, Prealbumin 18.2 L Current Medications Hydrocodone Bitart/Acetaminophen ([place] 5mg-325mg) 1 tablet PO Q4H PRN PRN PRN Reason: Pain Score 4-10/10 Last Admin: 02/14/19 00:28 Dose: 1 tablet Documented by: Atenolol (Tenormin (Beta Bianca)) 25 mg PO DAILY [facility] Last Admin: 02/15/19 11:30 Dose: 25 mg Documented by: Dextrose (D50w Syringe) 0 gm IV X1 PRN; Protocol PRN Reason: Hypoglycemia Glucagon () 1 mg IM .X1 PRN PRN Reason: Hypoglycemia Hydralazine HCl (Apresoline Iv) 5 mg IV Q4H PRN PRN PRN Reason: SBP > 160 Hydromorphone HCl (Dilaudid Inj) 1 mg IV Q3H PRN PRN PRN Reason: Pain Score 6-10/10 Last Admin: 02/15/19 09:21 Dose: 1 mg Documented by: Sodium Chloride () 250 mls @ 15 mls/hr IV .[id number] PRN PRN Reason: Saline Flush Last Infusion: 02/15/19 06:38 Dose: 0 mls/hr Documented by: Ampicillin Sodium/Sulbactam (Sodium 3 gm/ Sodium Chloride) 112 mls @ 150 mls/hr IV Q8 [facility] Last Infusion: 02/15/19 05:44 Dose: Infused Documented by: Melatonin (Melatonin) 3 mg PO QHS PRN PRN PRN Reason: INSOMNIA Last Admin: 02/14/19 00:28 Dose: 3 mg Documented by: Ondansetron HCl (Zofran) 4 mg IV Q8H PRN PRN PRN Reason: NAUSEA/VOMITING Last Admin: 02/14/19 13:28 Dose: 4 mg Documented by: Polyethylene Glycol (Miralax) 17 gm PO DAILY [facility] Last Admin: 02/15/19 11:31 Dose: Not Given Documented by: Senna/Docusate Sodium (Senokot-S, Brittani-Colace) 2 tablet PO DAILY PRN PRN PRN Reason: CONSTIPATION Sodium Chloride () 10 - 40 ml IV UD PRN PRN Reason: SALINE FLUSH Last Admin: 02/15/19 09:21 Dose: 10 ml Documented by: Medical Necessity - Tobacco Use Smoking Status: Never smoker Route of nutrition/ use of supplements: [] Nutritional Intake: [] IV Site: [] Das Catheter: [] - Assessment/Plan Antibiotics: [] Assessment/Plan: [] Active and Suspected Problems (Last Reviewed 02/13/19 @ 22:04 by Julián Larson MD) Cat bite involving extremity (Acute) Cellulitis (Acute) L hand infection due to cat bite - OR 02/[address] Arita. Reported redness improved with zosyn. Had been on amoxicillin prior to admit. Will narrow unasyn. Bone cx pending. Surg cx with some GPC. 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
[2019-02-15 13:56] VITALS: BP 151/89; PULSE 68; RESP 18; TEMP 36.4; O2SAT 99
--- NOTE | 2019-02-15 16:51 | PCM.PN.SRG ---
Patient Problems: Active and Suspected Problems (Last Reviewed 02/13/19 @ 22:04 by Julián Larson MD) Cat bite involving extremity (Acute) Cellulitis (Acute) Subjective: Postop #1 Patient is resting comfortably. Had some pain with the Silver dressing change to left thumb. Needed IV analgesia for the Silver dressing change. - Physical Exam Vitals/I&O's: Vital Signs Temp Pulse Resp BP Pulse Ox 97.5 F L 68 18 151/89 H 99 02/15/19 13:56 02/15/19 13:56 02/15/19 13:56 02/15/19 13:56 02/15/19 13:56 Oxygen Delivery Method Room Air Weight: 118 lb 9.739 oz Body Mass Index (BMI) 22.0 Intake and Output for Last 24 Hours 02/13/19 02/14/19 02/15/19 23:59 23:59 23:59 Intake Total 50 / 50 2291.50 / 2291.50 1037.25 / 1037.25 Balance 50 / 50 2291.50 / 2291.50 1037.25 / 1037.25 General: Alert, Oriented x3 HEENT: PERRLA, EOMI Oral: Moist Mucosa Neck: Supple Abdomen: Soft, Non-Distended Skin: Ulcer/ Wound - left thumb wounds are stable. Swelling is resolving. No further evidence of infection. Redressed the wounds with Silver dressing. Had some pain with the dressing. Needed IV analgesia. Neurological: Cranial nerves II-XII grossly intact Psych/Mental Status: Normal Affect, Appropriate Microbiology Past 72 Hours 02/14/19 11:01 Bone - Other Gram Stain - Final 02/14/19 11:01 Bone - Other Wound Culture - Preliminary No growth-Final to follow 02/14/19 11:01 Tissue - Other Gram Stain - Final 02/14/19 11:01 Tissue - Other Wound Culture - Preliminary Gram Positive Cocci Laboratory Results 02/15/19 05:10: WBC 16.2 H, RBC 3.83 L, Hgb 12.0, Hct 36.2 L, MCV 94.5, MCH 31.3, MCHC 33.1, RDW Std Deviation 44.8 H, RDW Coeff of Enrique 13.0, Plt Count 238, MPV 10.0, ESR 35 H 02/15/19 05:10: Sodium 138, Potassium 3.8, Chloride 103, Carbon Dioxide 29.0, Anion Gap 6, BUN 13, Creatinine 0.69, Estim Creat Clear Calc 67.88, Est GFR (MDRD) Af Amer 112, Est GFR (MDRD) Non-Af 93, BUN/Creatinine Ratio 18.8, Glucose 108 H, Calcium 8.9, Total Bilirubin 0.50, AST 18, ALT 22, Alkaline Phosphatase 60, C-React Prot Ext Range 19.40 H, Total Protein 7.2, Albumin 3.5, Globulin 3.7, Albumin/Globulin Ratio 0.9, Prealbumin 18.2 L Current Medications Hydrocodone Bitart/Acetaminophen ([place] 5mg-325mg) 1 tablet PO Q4H PRN PRN PRN Reason: Pain Score 4-1010 Last Admin: 02/14/19 00:28 Dose: 1 tablet Documented by: Atenolol (Tenormin (Beta Bianca)) 25 mg PO DAILY [facility] Last Admin: 02/15/19 11:30 Dose: 25 mg Documented by: Dextrose (D50w Syringe) 0 gm IV X1 PRN; Protocol PRN Reason: Hypoglycemia Glucagon () 1 mg IM .X1 PRN PRN Reason: Hypoglycemia Hydralazine HCl (Apresoline Iv) 5 mg IV Q4H PRN PRN PRN Reason: SBP > 160 Hydromorphone HCl (Dilaudid Inj) 1 mg IV Q3H PRN PRN PRN Reason: Pain Score 6-10/10 Last Admin: 02/15/19 09:21 Dose: 1 mg Documented by: Sodium Chloride () 250 mls @ 15 mls/hr IV .[id number] PRN PRN Reason: Saline Flush Last Infusion: 02/15/19 06:38 Dose: 0 mls/hr Documented by: Ampicillin Sodium/Sulbactam (Sodium 3 gm/ Sodium Chloride) 112 mls @ 150 mls/hr IV Q8 [facility] Last Infusion: 02/15/19 14:37 Dose: Infused Documented by: Melatonin (Melatonin) 3 mg PO QHS PRN PRN PRN Reason: INSOMNIA Last Admin: 02/14/19 00:28 Dose: 3 mg Documented by: Ondansetron HCl (Zofran) 4 mg IV Q8H PRN PRN PRN Reason: NAUSEA/VOMITING Last Admin: 02/14/19 13:28 Dose: 4 mg Documented by: Polyethylene Glycol (Miralax) 17 gm PO DAILY [facility] Last Admin: 02/15/19 11:31 Dose: Not Given Documented by: Senna/Docusate Sodium (Senokot-S, Brittani-Colace) 2 tablet PO DAILY PRN PRN PRN Reason: CONSTIPATION Sodium Chloride () 10 - 40 ml IV UD PRN PRN Reason: SALINE FLUSH Last Admin: 02/15/19 13:52 Dose: 10 ml Documented by: Medical Necessity - Tobacco Use Smoking Status: Never smoker Assessment/Plan All Active Problems (Last Reviewed 02/13/19 @ 22:04 by Julián Larson MD) Cat bite involving extremity (Acute) Cellulitis (Acute) Cat bite of left hand (Acute) 1. Cat bite infection abscess left thumb at MP joint. 2. Inflammatory flexor tenosynovitis left thumb from cat bite infection abscess. 3. Septic MP joint left thumb from cat bite infection abscess. 4. Early clinical osteomyelitis MP joint left thumb. 5. s/p surgical preparation dorsal aspect and volar radial aspect left thumb at MP joint with incision and drainage and excisional debridement cat bite infection abscess. 2. Arthrotomy and drainage septic MP joint left thumb from cat bite infection abscess. 3. Partial ostectomy metacarpal head at MP joint left thumb for osteomyelitis. 4. Incision and drainage tendon sheath for inflammatory flexor tenosynovitis left thumb from cat bite infection. Wounds are stable. No further evidence of infection at this time. WBC increased to 16.2. Probably from surgical manipulation. Should continue to trend down. If it continues to increase, then would need further operative drainage of the wounds and MP joint. Operative culture shows Gram positive cocci thus far. On Unasyn. MRSA swab was negative. Pathology is pending. Prealbumin was 18.2. Encourage nutritional supplementation with protein to help the healing process. Because of pus in the MP joint, the patient would benefit from IV antibiotics after discharge. PICC line was placed. After discharge, will need a silastic thumb spica splint from OT along with range of motion exercises, strengthening, and edema management.
[2019-02-15 20:50] VITALS: BP 159/103; PULSE 65; RESP 16; TEMP 36.8; O2SAT 100
[2019-02-15] MEDS: MELATONIN 3 MG TABLET PO (21:53)
[2019-02-16 03:00] VITALS: BP 140/82; PULSE 60; RESP 16; TEMP 37; O2SAT 99
[2019-02-16] MEDS: 0.9% Saline Lock 10 ML Syringe IV ×4 (06:39→23:35)
[2019-02-16 06:52] LABS: Hematocrit 36.9 % (37-47); Hemoglobin 12.3 g/dL (12.0-15.0); Mean Corp Hgb Conc 33.3 g/dL (32-36); Mean Corpuscular Hgb 31.9 pg (27.0-32.0); Mean Corpuscular Volume 95.6 fL (81-99); Mean Platelet Vol. 10.1 fl (6.2-12.0); Platelet Count 229 K/mm3 (150-450); RBC Distribution Width SD 45.9 fl (35.1-43.9); Red Blood Count 3.86 M/mm3 (4.2-5.4); White Blood Count 9.4 K/mm3 (4.4-11.0)
[2019-02-16 07:56] VITALS: O2SAT 98
[2019-02-16 09:57] VITALS: BP 142/88; PULSE 70; RESP 16; TEMP 36.7; O2SAT 100
[2019-02-16] MEDS: Atenolol 25 MG Tablet PO (10:15)
[2019-02-16] MEDS: HYDROmorphone 1 MG/ML Syringe IV (12:18)
[2019-02-16] MEDS: HYDROcodone Bitartrate/Apap 5/325 Tablet PO (12:19)
[2019-02-16] MEDS: Ondansetron 4 MG/2 ML Vial IV (12:19)
--- NOTE | 2019-02-16 13:23 | PN_ITS ---
<Lottie Cardoza - Last Filed: 02/16/19 13:41> Patient Problems: Active and Suspected Problems (Last Reviewed 02/13/19 @ 22:04 by Julián Larson MD) Cat bite involving extremity (Acute) Cellulitis (Acute) Subjective: Patient seen and examined. Denies fever, chills. Left hand pain well controlled. Awaiting final cultures. - Physical Exam Vitals/I&O's: Vital Signs Temp Pulse Resp BP Pulse Ox 98.0 F 70 16 142/88 H 100 02/16/19 09:57 02/16/19 09:57 02/16/19 09:57 02/16/19 09:57 02/16/19 09:57 Oxygen Delivery Method Room Air Weight: 118 lb 9.739 oz Body Mass Index (BMI) 22.0 Intake and Output for Last 24 Hours 02/14/19 02/15/19 02/16/19 23:59 23:59 23:59 Intake Total 2291.50 / 2291.50 1149.25 / 1629.25 1192 / 1192 Balance 2291.50 / 2291.50 1149.25 / 1629.25 1192 / 1192 General: Alert, Oriented x3, Cooperative HEENT: Atraumatic, PERRLA, EOMI, Normocephalic Neck: Supple, No JVD, Negative Carotid Bruits Lungs: Clear to auscultation, Normal air movement Cardiovascular: Regular rate, Regular Rhythm, Normal S1, Normal S2, No murmurs Abdomen: Bowel Sounds Present, Soft, Non Tender, Non-Distended Extremities: No clubbing, No cyanosis, No edema, Capillary Refill Less than 3 Seconds Skin: No rashes, No breakdown, - - Left hand dressing clean dry and intact. Musculoskeletal: No Tenderness to Palpation of Joints or Extremities Neurological: Cranial nerves II-XII grossly intact, Neuro grossly intact Psych/Mental Status: Normal Affect, Appropriate Microbiology Past 72 Hours 02/14/19 11:01 Tissue - Other Gram Stain - Final 02/14/19 11:01 Tissue - Other Wound Culture - Preliminary Gram negative cocco bacillus 02/14/19 11:01 Tissue - Other Anaerobic Culture - Preliminary No growth in 48 hours. 02/14/19 11:01 Bone - Other Gram Stain - Final 02/14/19 11:01 Bone - Other Wound Culture - Preliminary No growth-Final to follow 02/14/19 11:01 Bone - Other Anaerobic Culture - Preliminary No growth in 48 hours. Laboratory Results 02/16/19 06:35: WBC 9.4, RBC 3.86 L, Hgb 12.3, Hct 36.9 L, MCV 95.6, MCH 31.9, MCHC 33.3, RDW Std Deviation 45.9 H, RDW Coeff of Enrique 13.0, Plt Count 229, MPV 10.1 Current Medications Hydrocodone Bitart/Acetaminophen ([place] 5mg-325mg) 1 tablet PO Q4H PRN PRN PRN Reason: Pain Score 4-10/10 Last Admin: 02/16/19 12:19 Dose: 1 tablet Documented by: Atenolol (Tenormin (Beta Bianca)) 25 mg PO DAILY [facility] [place] Last Admin: 02/16/19 10:15 Dose: 25 mg Documented by: Dextrose (D50w Syringe) 0 gm IV X1 PRN; Protocol PRN Reason: Hypoglycemia Glucagon () 1 mg IM .X1 PRN PRN Reason: Hypoglycemia Hydralazine HCl (Apresoline Iv) 5 mg IV Q4H PRN PRN PRN Reason: SBP > 160 Hydromorphone HCl (Dilaudid Inj) 1 mg IV Q3H PRN PRN PRN Reason: Pain Score 6-10/10 Last Admin: 02/16/19 12:18 Dose: 0.5 mg Documented by: Sodium Chloride () 250 mls @ 15 mls/hr IV .[id number] PRN PRN Reason: Saline Flush Last Infusion: 02/15/19 06:38 Dose: 0 mls/hr Documented by: Ampicillin Sodium/Sulbactam (Sodium 3 gm/ Sodium Chloride) 112 mls @ 150 mls/hr IV Q8 [facility] Last Infusion: 02/16/19 06:19 Dose: Infused Documented by: Melatonin (Melatonin) 3 mg PO QHS PRN PRN PRN Reason: INSOMNIA Last Admin: 02/15/19 21:53 Dose: 3 mg Documented by: Ondansetron HCl (Zofran) 4 mg IV Q8H PRN PRN PRN Reason: NAUSEA/VOMITING Last Admin: 02/16/19 12:19 Dose: 4 mg Documented by: Polyethylene Glycol (Miralax) 17 gm PO DAILY [facility] [place] Last Admin: 02/16/19 10:29 Dose: Not Given Documented by: Senna/Docusate Sodium (Senokot-S, Brittani-Colace) 2 tablet PO DAILY PRN PRN PRN Reason: CONSTIPATION Sodium Chloride () 10 - 40 ml IV UD PRN PRN Reason: SALINE FLUSH Last Admin: 02/16/19 12:18 Dose: 20 ml Documented by: Medical Necessity - Tobacco Use Smoking Status: Never smoker Assessment/Plan All Active Problems (Last Reviewed 02/13/19 @ 22:04 by Julián Larson MD) Cat bite involving extremity (Acute) Cellulitis (Acute) Cat bite of left hand (Acute) 1. Left thumb and hand cellulitis with left thumb abscess and early osteomyelitis MP joint left thumb secondary to cat bite-ID and plastic surgery on consult. Patient underwent incision and drainage and excisional debridement of abscess left thumb, arthrotomy and drainage septic MP joint left thumb and partial ostectomy metacarpal head at MP joint left thumb for osteomyelitis 02/14/19. Continue IV Unasyn. PRN pain regimen. Wound RN consult. PICC line in place. Preliminary bone culture shows no growth. Preliminary tissue culture showing gram-negative cocco bacillus. Fungal smear pending. Leukocytosis resolved. Afebrile. 2. Hypertension-stable, continue home atenolol regimen. As needed hydralazine for systolic blood pressure greater than 160. DVT prophylaxis-SCDs. This patient was seen by RHINA Lentz under the supervision of Dr. Cervantes. <Sb Cervantes - Last Filed: 02/16/19 14:48> Subjective: Seen and examined. Patient complain of pain while changing dressing. Currently pain is controlled. Preliminary tissue culture shows small gram-negative coccobacillus. - Physical Exam Vitals/I&O's: Vital Signs Temp Pulse Resp BP Pulse Ox 98.0 F 70 16 142/88 H 100 02/16/19 09:57 02/16/19 09:57 02/16/19 09:57 02/16/19 09:57 02/16/19 09:57 Oxygen Delivery Method Room Air Weight: 118 lb 9.739 oz Body Mass Index (BMI) 22.0 Intake and Output for Last 24 Hours 02/14/19 02/15/19 02/16/19 23:59 23:59 23:59 Intake Total 2291.50 / 2291.50 1149.25 / 1629.25 1304 / 1304 Balance 2291.50 / 2291.50 1149.25 / 1629.25 1304 / 1304 General: Alert, Oriented x3, Cooperative HEENT: Atraumatic, PERRLA, EOMI, Normocephalic Neck: Supple, No JVD, Negative Carotid Bruits Lungs: Clear to auscultation, Normal air movement, No rhonchi, No wheeze, No rales Cardiovascular: Regular rate, No murmurs Abdomen: Bowel Sounds Present, Soft, Non Tender Extremities: No edema, Capillary Refill Less than 3 Seconds Skin: Ulcer/ Wound, - Musculoskeletal: No Tenderness to Palpation of Joints or Extremities, Tenderness - Tenderness of left hand Lymphatic: No Cervical, Supraclavicular, or Inguinal Adenopathy Neurological: Cranial nerves II-XII grossly intact, Deep Tendon Reflexes 2+/4 and Symmetrical, Neuro grossly intact, Motor Exam 5/5 strength throughout - Except left hand and forearm Psych/Mental Status: Normal Affect, Appropriate Microbiology Past 72 Hours 02/14/19 11:01 Tissue - Other Gram Stain - Final 02/14/19 11:01 Tissue - Other Wound Culture - Preliminary Gram negative cocco bacillus 02/14/19 11:01 Tissue - Other Anaerobic Culture - Preliminary No growth in 48 hours. 02/14/19 11:01 Bone - Other Gram Stain - Final 02/14/19 11:01 Bone - Other Wound Culture - Preliminary No growth-Final to follow 02/14/19 11:01 Bone - Other Anaerobic Culture - Preliminary No growth in 48 hours. Laboratory Results 02/16/19 06:35: WBC 9.4, RBC 3.86 L, Hgb 12.3, Hct 36.9 L, MCV 95.6, MCH 31.9, MCHC 33.3, RDW Std Deviation 45.9 H, RDW Coeff of Enrique 13.0, Plt Count 229, MPV 10.1 Current Medications Hydrocodone Bitart/Acetaminophen ([place] 5mg-325mg) 1 tablet PO Q4H PRN PRN PRN Reason: Pain Score 4-1010 Last Admin: 02/16/19 12:19 Dose: 1 tablet Documented by: Atenolol (Tenormin (Beta Bianca)) 25 mg PO DAILY [facility] [place] Last Admin: 02/16/19 10:15 Dose: 25 mg Documented by: Dextrose (D50w Syringe) 0 gm IV X1 PRN; Protocol PRN Reason: Hypoglycemia Diazepam (Valium) 5 mg PO 4X/DAY PRN PRN PRN Reason: SPASMS Gabapentin (Neurontin) 300 mg PO BIDCM [facility] [place] Glucagon () 1 mg IM .X1 PRN PRN Reason: Hypoglycemia Hydralazine HCl (Apresoline Iv) 5 mg IV Q4H PRN PRN PRN Reason: SBP > 160 Hydromorphone HCl (Dilaudid Inj) 0.5 mg IV Q3H PRN PRN PRN Reason: Pain Score 6-10/10 Sodium Chloride () 250 mls @ 15 mls/hr IV .[id number] PRN PRN Reason: Saline Flush Last Infusion: 02/16/19 14:31 Dose: 15 mls/hr Documented by: Ampicillin Sodium/Sulbactam (Sodium 3 gm/ Sodium Chloride) 112 mls @ 150 mls/hr IV Q8 [facility] [place] Last Infusion: 02/16/19 14:31 Dose: Infused Documented by: Melatonin (Melatonin) 3 mg PO QHS PRN PRN PRN Reason: INSOMNIA Last Admin: 02/15/19 21:53 Dose: 3 mg Documented by: Ondansetron HCl (Zofran) 4 mg IV Q8H PRN PRN PRN Reason: NAUSEA/VOMITING Last Admin: 02/16/19 12:19 Dose: 4 mg Documented by: Polyethylene Glycol (Miralax) 17 gm PO DAILY [facility] [place] Last Admin: 02/16/19 10:29 Dose: Not Given Documented by: Senna/Docusate Sodium (Senokot-S, Brittani-Colace) 2 tablet PO DAILY PRN PRN PRN Reason: CONSTIPATION Sodium Chloride () 10 - 40 ml IV UD PRN PRN Reason: SALINE FLUSH Last Admin: 02/16/19 13:49 Dose: 10 ml Documented by: Assessment/Plan This patient was seen in conjunction with TELEVISION RECEIVER ANALYZERLottie. I have independently interviewed and examined the patient and reviewed pertinent history, examination findings, laboratory and plan of management. I have reviewed the note and agree with the documented findings with the few additional points. In brief, patient is admitted for left thumb and hand cellulitis with left thumb abscess complicating early osteomyelitis of MP joint of left thumb secondary to cat bite: Patient is being co-managed by ID and plastic surgeon Dr. Arita. Patient had incision, drainage with excisional debridement. On IV Unasyn. Patient will remain through the weekend probably on Monday also. Hypertension: Blood pressure is controlled 142/78. Add losartan 50 mg daily. I have discussed my assessment with TELEVISION RECEIVER ANALYZERLottie and orders have been reviewed. Code Visit Inpatient E&M: 32420 Subs Hosp L2
--- NOTE | 2019-02-16 13:33 | PN.SURG_ITS ---
Patient Problems: Active and Suspected Problems (Last Reviewed 02/13/19 @ 22:04 by Julián Larson MD) Cat bite involving extremity (Acute) Cellulitis (Acute) Subjective: Postop #2 Patient complains of muscle spasm pain in the thenar eminence. Also has burning nerve pain in the thumb. Tried the dressing change with po analgesia. Did not go well. She needed IV analgesia. - Physical Exam Vitals/I&O's: Vital Signs Temp Pulse Resp BP Pulse Ox 98.0 F 70 16 142/88 H 100 02/16/19 09:57 02/16/19 09:57 02/16/19 09:57 02/16/19 09:57 02/16/19 09:57 Oxygen Delivery Method Room Air Weight: 118 lb 9.739 oz Body Mass Index (BMI) 22.0 Intake and Output for Last 24 Hours 02/14/19 02/15/19 02/16/19 23:59 23:59 23:59 Intake Total 2291.50 / 2291.50 1149.25 / 1629.25 1192 / 1192 Balance 2291.50 / 2291.50 1149.25 / 1629.25 1192 / 1192 General: Alert, Oriented x3 HEENT: PERRLA, EOMI Oral: Moist Mucosa Neck: Supple Abdomen: Soft, Non-Distended Skin: Ulcer/ Wound - lefdt thumb wound is stable. Swelling is resolving. Some granulation tissue seen. Redness on thumb has resolved. No further evidence of infection noted at this time. Needed IV analgesia for the Silver dressing change today. Neurological: Cranial nerves II-XII grossly intact Psych/Mental Status: Normal Affect, Appropriate Microbiology Past 72 Hours 02/14/19 11:01 Tissue - Other Gram Stain - Final 02/14/19 11:01 Tissue - Other Wound Culture - Preliminary Gram negative cocco bacillus 02/14/19 11:01 Tissue - Other Anaerobic Culture - Preliminary No growth in 48 hours. 02/14/19 11:01 Bone - Other Gram Stain - Final 02/14/19 11:01 Bone - Other Wound Culture - Preliminary No growth-Final to follow 02/14/19 11:01 Bone - Other Anaerobic Culture - Preliminary No growth in 48 hours. Laboratory Results 02/16/19 06:35: WBC 9.4, RBC 3.86 L, Hgb 12.3, Hct 36.9 L, MCV 95.6, MCH 31.9, MCHC 33.3, RDW Std Deviation 45.9 H, RDW Coeff of Enrique 13.0, Plt Count 229, MPV 10.1 Current Medications Hydrocodone Bitart/Acetaminophen ([place] 5mg-325mg) 1 tablet PO Q4H PRN PRN PRN Reason: Pain Score 4-10/10 Last Admin: 02/16/19 12:19 Dose: 1 tablet Documented by: Atenolol (Tenormin (Beta Bianca)) 25 mg PO DAILY [facility] Last Admin: 02/16/19 10:15 Dose: 25 mg Documented by: Dextrose (D50w Syringe) 0 gm IV X1 PRN; Protocol PRN Reason: Hypoglycemia Glucagon () 1 mg IM .X1 PRN PRN Reason: Hypoglycemia Hydralazine HCl (Apresoline Iv) 5 mg IV Q4H PRN PRN PRN Reason: SBP > 160 Hydromorphone HCl (Dilaudid Inj) 1 mg IV Q3H PRN PRN PRN Reason: Pain Score 6-10/10 Last Admin: 02/16/19 12:18 Dose: 0.5 mg Documented by: Sodium Chloride () 250 mls @ 15 mls/hr IV .[id number] PRN PRN Reason: Saline Flush Last Infusion: 02/15/19 06:38 Dose: 0 mls/hr Documented by: Ampicillin Sodium/Sulbactam (Sodium 3 gm/ Sodium Chloride) 112 mls @ 150 mls/hr IV Q8 LILIYA Last Infusion: 02/16/19 06:19 Dose: Infused Documented by: Melatonin (Melatonin) 3 mg PO QHS PRN PRN PRN Reason: INSOMNIA Last Admin: 02/15/19 21:53 Dose: 3 mg Documented by: Ondansetron HCl (Zofran) 4 mg IV Q8H PRN PRN PRN Reason: NAUSEA/VOMITING Last Admin: 02/16/19 12:19 Dose: 4 mg Documented by: Polyethylene Glycol (Miralax) 17 gm PO DAILY [facility] Last Admin: 02/16/19 10:29 Dose: Not Given Documented by: Senna/Docusate Sodium (Senokot-S, Brittani-Colace) 2 tablet PO DAILY PRN PRN PRN Reason: CONSTIPATION Sodium Chloride () 10 - 40 ml IV UD PRN PRN Reason: SALINE FLUSH Last Admin: 02/16/19 12:18 Dose: 20 ml Documented by: Medical Necessity - Tobacco Use Smoking Status: Never smoker Assessment/Plan All Active Problems (Last Reviewed 02/13/19 @ 22:04 by Julián Larson MD) Cat bite involving extremity (Acute) Cellulitis (Acute) Cat bite of left hand (Acute) 1. Cat bite infection abscess left thumb at MP joint. 2. Inflammatory flexor tenosynovitis left thumb from cat bite infection abscess. 3. Septic MP joint left thumb from cat bite infection abscess. 4. Early clinical osteomyelitis MP joint left thumb. 5. s/p surgical preparation dorsal aspect and volar radial aspect left thumb at MP joint with incision and drainage and excisional debridement cat bite infection abscess. 2. Arthrotomy and drainage septic MP joint left thumb from cat bite infection abscess. 3. Partial ostectomy metacarpal head at MP joint left thumb for osteomyelitis. 4. Incision and drainage tendon sheath for inflammatory flexor tenosynovitis left thumb from cat bite infection. Wounds are stable. No further evidence of infection at this time. WBC decreased to 9.4. Needed IV analgesia for the Silver dressing change. Tried po analgesia initially and it didn't go well. Will add Valium for muscle spasm in the thenar eminence. Will add Neurontin for the burning nerve pain. Operative culture shows Gram negative cocco bacillus. On Unasyn. MRSA swab was negative. Pathology is pending. Prealbumin was 18.2. Encourage nutritional supplementation with protein to help the healing process. Because of pus in the MP joint, the patient would benefit from IV antibiotics after discharge. PICC line was placed. After discharge, will need a silastic thumb spica splint from OT along with range of motion exercises, strengthening, and edema management.
--- NOTE | 2019-02-16 15:12 | NURSING ---
This nurse reviewed charting of SN Wallace
[2019-02-16 15:19] VITALS: BP 140/89; PULSE 60; RESP 16; TEMP 36.4; O2SAT 99
[2019-02-16] MEDS: Gabapentin 300 MG Capsule PO (17:13)
[2019-02-16] MEDS: Losartan Potassium 50 MG Tablet PO (17:13)
[2019-02-16 20:40] VITALS: BP 144/89; PULSE 75; RESP 16; TEMP 36.9; O2SAT 98
[2019-02-17 02:33] VITALS: BP 140/83; PULSE 80; RESP 16; TEMP 37.1; O2SAT 97
[2019-02-17] MEDS: 0.9% Saline Lock 10 ML Syringe IV ×2 (05:38→14:21)
[2019-02-17 08:30] VITALS: BP 145/83; PULSE 78; RESP 20; TEMP 36.7; O2SAT 99
[2019-02-17] MEDS: Gabapentin 300 MG Capsule PO (08:47)
[2019-02-17] MEDS: Atenolol 25 MG Tablet PO (10:28)
[2019-02-17] MEDS: Losartan Potassium 50 MG Tablet PO (10:28)
[2019-02-17] MEDS: HYDROcodone Bitartrate/Apap 5/325 Tablet PO (12:11)
[2019-02-17 12:16] VITALS: BP 117/82; PULSE 80; RESP 20; TEMP 36.7; O2SAT 96
--- NOTE | 2019-02-17 14:15 | PCM.DC ---
- Discharge Diagnoses Current Active Problems: Current Active and Chronic Problems (Last Reviewed 02/13/19 @ 22:04 by Julián Larson MD) Cat bite involving extremity (Acute) Cellulitis (Acute) You will use the following diet at home:: No restrictions Discharge Activity: Return to Normal Activity Call your doctor if your incision/area has: Continuous Slow Oozing, Sudden Increased Bleeding, Increased Pain/ Swelling, Increased Redness, Foul Smelling Discharge, Swelling at the incision site Call your doctor if you observe: Fever of 101 or Higher, Uncontrolled pain Allergies/Adverse Reactions: Allergies codeine Adverse Reaction (Verified 02/12/19 08:35) nausea/vomiting morphine Adverse Reaction (Verified 02/12/19 08:35) Nausea/Vom/Diarrhea Medications to take at Discharge atenolol 25 mg tablet 25 mg PO DAILY #90 tab 02/12/19 Amox/Clavulanate Tablet [Augmentin Tablet] 875 mg PO Q12H #20 tab 02/17/19 Gabapentin [Neurontin] 300 mg PO QHS #30 cap 02/17/19 Hydrocodone Bitart/Apap 5-325 [[place] 5/325] 1 tablet PO Q4H PRN PRN 4 Days #20 tablet 02/17/19 Losartan Potassium [Cozaar] 50 mg PO DAILY #30 tab 02/17/19 The following prescriptions were given: Amox/Clavulanate Tablet [Augmentin Tablet] 875 mg PO Q12H #20 tab Transmission Status: Pending to [id number] Losartan Potassium [Cozaar] 50 mg PO DAILY #30 tab Transmission Status: Pending to [id number] Gabapentin [Neurontin] 300 mg PO QHS #30 cap Transmission Status: Pending to [id number] Hydrocodone Bitart/Apap 5-325 [[place] 5/325] 1 tablet PO Q4H PRN PRN 4 Days #20 tablet PRN Reason: Pain Score 4-10/10 Transmission Status: Received by [id number] Primary Care Physician: Asif Webb MD [Primary Care Provider] - Please follow up with your Primary Care Physician in: 1 Week Test Results: Test results from this visit will be discussed in further detail at your follow-up appointment, if applicable. Please Follow Up With: Vipin Arita MD When: Monday Please Follow Up With: Clinic,Wound - Dr. Preston When: 3 Days Proposed Discharge Date: 02/17/19
--- NOTE | 2019-02-17 14:17 | DS.PCM_ITS ---
Discharge Date and Diagnosis Date of Admission: 02/13/19 Date of Discharge: 02/17/19 - Primary Discharge Diagnosis Active and Suspected Problems (Last Reviewed 02/13/19 @ 22:04 by Julián Larson MD) 1. Left thumb and hand cellulitis with left thumb abscess and early osteomyelitis MP joint left thumb/septic joint secondary to cat bite 2. Hypertension Hospital Course and Treatment Imaging Results: Diagnostic Data Diagnostic Data Hand X-Ray 02/13/19 20:20 Consultations 02/14/19 07:34 Consult: Onc/Wound/business continuity planner Routine Comment: Reason for Consult:: cat bite right hand Dr. Arita- Plastic Surgery Dr. Preston- ID Operations: - - 1. Surgical preparation dorsal aspect and volar radial aspect left thumb at MP joint with incision and drainage and excisional debridement cat bite infection abscess. 2. Arthrotomy and drainage septic MP joint left thumb from cat bite infection abscess. 3. Partial ostectomy metacarpal head at MP j oint left thumb for osteomyelitis. 4. Incision and drainage tendon sheath for inflammatory flexor tenosynovitis left thumb from cat bite infection. Procedures: None Summary of Care Provided: The patient is a 58 year old F admitted 02/13/2019 due to cat bite. 1. Left thumb and hand cellulitis with left thumb abscess and early osteomyelitis MP joint left thumb secondary to cat bite-ID and plastic surgery consulted during admission. Patient underwent incision and drainage and excisional debridement of abscess left thumb, arthrotomy and drainage septic MP joint left thumb and partial ostectomy metacarpal head at MP joint left thumb for osteomyelitis 02/14/19. IV Unasyn during admission. Transition to Augmentin 875 mg p.o. twice daily x10 days at discharge. PRN pain regimen. Preliminary bone culture shows no growth. Tissue culture growing Pasteurella. Fungal smear pending. Leukocytosis resolved. Afebrile. Follow-up with Dr. Mary Anne león tomorrow for dressing change. Follow up with wound center/Dr. Preston next week. 2. Hypertension-continue home atenolol regimen. Additionally added on losartan 50 mg daily. Blood pressure stable. General: Alert, Oriented x3, Cooperative HEENT: Atraumatic, PERRLA, EOMI, Normocephalic Neck: Supple, No JVD, Negative Carotid Bruits Lungs: Clear to auscultation, Normal air movement Cardiovascular: Regular rate, Regular Rhythm, Normal S1, Normal S2, No murmurs Abdomen: Bowel Sounds Present, Soft, Non Tender, Non-Distended Extremities: No clubbing, No cyanosis, No edema, Capillary Refill Less than 3 Seconds Skin: No rashes, No breakdown, - - Left hand dressing clean dry and intact. Musculoskeletal: No Tenderness to Palpation of Joints or Extremities Neurological: Cranial nerves II-XII grossly intact, Neuro grossly intact Psych/Mental Status: Normal Affect, Appropriate Patient seen and examined prior to discharge. Physical assessment as noted above. Patient is stable for discharge with follow up recommendations as noted above. This patient was seen by RHINA Lentz under the supervision of Dr. Donovan. - Physical Exam Vitals/I&O's: Vital Signs Temp Pulse Resp BP Pulse Ox 98.1 F 80 20 H 117/82 H 96 02/17/19 12:16 02/17/19 12:16 02/17/19 12:16 02/17/19 12:16 02/17/19 12:16 Oxygen Delivery Method Room Air Weight: 118 lb 9.739 oz Body Mass Index (BMI) 22.0 Intake and Output for Last 24 Hours 02/15/19 02/16/19 02/17/19 23:59 23:59 23:59 Intake Total 1149.25 / 1629.25 2384.5 / 2384.5 712 / 712 Balance 1149.25 / 1629.25 2384.5 / 2384.5 712 / 712 Microbiology Past 72 Hours 02/14/19 11:01 Bone - Other Gram Stain - Final 02/14/19 11:01 Bone - Other Wound Culture - Final No growth aerobically. 02/14/19 11:01 Bone - Other Anaerobic Culture - Preliminary No growth in 48 hours. 02/14/19 11:01 Tissue - Other Gram Stain - Final 02/14/19 11:01 Tissue - Other Wound Culture - Final Pasteurella multocida 02/14/19 11:01 Tissue - Other Anaerobic Culture - Preliminary No growth in 48 hours. Current Medications Hydrocodone Bitart/Acetaminophen ([place] 5mg-325mg) 1 tablet PO Q4H PRN PRN PRN Reason: Pain Score 4-1010 Last Admin: 02/17/19 12:11 Dose: 1 tablet Documented by: Atenolol (Tenormin (Beta Bianca)) 25 mg PO DAILY [facility] Last Admin: 02/17/19 10:28 Dose: 25 mg Documented by: Dextrose (D50w Syringe) 0 gm IV X1 PRN; Protocol PRN Reason: Hypoglycemia Diazepam (Valium) 5 mg PO 4X/DAY PRN PRN PRN Reason: SPASMS Gabapentin (Neurontin) 300 mg PO QHS [facility] Glucagon () 1 mg IM .X1 PRN PRN Reason: Hypoglycemia Hydralazine HCl (Apresoline Iv) 5 mg IV Q4H PRN PRN PRN Reason: SBP > 160 Hydromorphone HCl (Dilaudid Inj) 0.5 mg IV Q3H PRN PRN PRN Reason: Pain Score 6-10/10 Sodium Chloride () 250 mls @ 15 mls/hr IV .[id number] PRN PRN Reason: Saline Flush Last Infusion: 02/17/19 06:35 Dose: 0 mls/hr Documented by: Ampicillin Sodium/Sulbactam (Sodium 3 gm/ Sodium Chloride) 112 mls @ 150 mls/hr IV Q8 [facility] Last Infusion: 02/17/19 06:24 Dose: Infused Documented by: Losartan Potassium (Cozaar) 50 mg PO DAILY [facility] Last Admin: 02/17/19 10:28 Dose: 50 mg Documented by: Melatonin (Melatonin) 3 mg PO QHS PRN PRN PRN Reason: INSOMNIA Last Admin: 02/15/19 21:53 Dose: 3 mg Documented by: Ondansetron HCl (Zofran) 4 mg IV Q8H PRN PRN PRN Reason: NAUSEA/VOMITING Last Admin: 02/16/19 12:19 Dose: 4 mg Documented by: Polyethylene Glycol (Miralax) 17 gm PO DAILY [facility] Last Admin: 02/17/19 10:29 Dose: Not Given Documented by: Senna/Docusate Sodium (Senokot-S, Brittani-Colace) 2 tablet PO DAILY PRN PRN PRN Reason: CONSTIPATION Sodium Chloride () 10 - 40 ml IV UD PRN PRN Reason: SALINE FLUSH Last Admin: 02/17/19 05:38 Dose: 10 ml Documented by: Discharge Diet: No Restrictions Discharge Activity: Return to Normal Activity Call your doctor if your incision/area has: Continuous Slow Oozing, Sudden Increased Bleeding, Increased Pain/ Swelling, Increased Redness, Foul Smelling Discharge, Swelling at the incision site Call your doctor if you observe: Fever of 101 or Higher, Uncontrolled pain Home Medications: Medications to take at Discharge atenolol 25 mg tablet 25 mg PO DAILY #90 tab 02/12/19 Amox/Clavulanate Tablet [Augmentin Tablet] 875 mg PO Q12H #20 tab 02/17/19 Gabapentin [Neurontin] 300 mg PO QHS #30 cap 02/17/19 Hydrocodone Bitart/Apap 5-325 [[place] 5/325] 1 tablet PO Q4H PRN PRN 4 Days #20 tablet 02/17/19 Losartan Potassium [Cozaar] 50 mg PO DAILY #30 tab 02/17/19 Following Prescrptions Were Given to Patient: Amox/Clavulanate Tablet [Augmentin Tablet] 875 mg PO Q12H #20 tab Transmission Status: [id number] Losartan Potassium [Cozaar] 50 mg PO DAILY #30 tab Transmission Status: [id number] Gabapentin [Neurontin] 300 mg PO QHS #30 cap Transmission Status: [id number] Hydrocodone Bitart/Apap 5-325 [[place] 5/325] 1 tablet PO Q4H PRN PRN 4 Days #20 tablet PRN Reason: Pain Score 4-10/10 Transmission Status: Re[facility] by [id number] Primary Care Physician: Asif Webb MD [Primary Care Provider] - Please follow up with your Primary Care Physician in: 1 Week Please Follow Up With: Vipin Arita MD When: Monday Please Follow Up With: Clinic,Wound - Dr. Preston When: 3 Days Disposition: Home Minutes spent on discharge:: 35 Patient Condition:: Stable Medical Necessity - Tobacco Use Smoking Status: Never smoker Meaningful Use Info Meaningful Use Diagnoses (Choose all that apply): None applicable
[2019-02-17] MEDS: Ondansetron 4 MG/2 ML Vial IV (16:59)
[2019-02-17] MEDS: HYDROmorphone 0.5 MG/0.5 ML SYRINGE IV (16:59)
[2019-02-17 17:00] VITALS: BP 121/82; PULSE 78; RESP 16; TEMP 36.7; O2SAT 98
--- NOTE | 2019-02-17 18:26 | NURSING ---
Picc removed, tip intact and pressure applied for 5min. Instructed on lying flat for 30min. Verbalizes understanding.
--- NOTE | 2019-02-17 18:52 | NURSING ---
Patient remains stable, without any signs or symptoms of acute distress or discomfort. she denies any pain or shortness of breath. Right upper arm picc removal post-site remains WNL. dressing dry and intact.
--- NOTE | 2019-02-17 23:09 | PN.SURG_ITS ---
Subjective: Postop #3 Tolerating the Silver dressing changes a little easier. She is anxious to go home. - Physical Exam Vitals/I&O's: Vital Signs Temp Pulse Resp BP Pulse Ox 98.0 F 78 16 121/82 H 98 02/17/19 17:00 02/17/19 17:00 02/17/19 17:00 02/17/19 17:00 02/17/19 17:00 Oxygen Delivery Method Room Air Weight: 118 lb 9.739 oz Body Mass Index (BMI) 22.0 Intake and Output for Last 24 Hours 02/15/19 02/16/19 02/17/19 23:59 23:59 23:59 Intake Total 1149.25 / 1629.25 2384.5 / 2384.5 824 / 824 Balance 1149.25 / 1629.25 2384.5 / 2384.5 824 / 824 General: Alert, Oriented x3 HEENT: PERRLA, EOMI Oral: Moist Mucosa Neck: Supple Abdomen: Soft, Non-Distended Skin: Ulcer/ Wound - left thumb wound is stable. Swelling is resolving. Some granulation tissue seen. Redness on thumb has resolved. No further evidence of infection noted at this time. Did a little better with the Silver dressing change today. Neurological: Cranial nerves II-XII grossly intact Psych/Mental Status: Normal Affect, Appropriate Microbiology Past 72 Hours 02/14/19 11:01 Bone - Other Gram Stain - Final 02/14/19 11:01 Bone - Other Wound Culture - Final No growth aerobically. 02/14/19 11:01 Bone - Other Anaerobic Culture - Preliminary No growth in 48 hours. 02/14/19 11:01 Tissue - Other Gram Stain - Final 02/14/19 11:01 Tissue - Other Wound Culture - Final Pasteurella multocida 02/14/19 11:01 Tissue - Other Anaerobic Culture - Preliminary No growth in 48 hours. Medical Necessity - Tobacco Use Smoking Status: Never smoker Assessment/Plan All Active Problems (Last Reviewed 02/13/19 @ 22:04 by Julián Larson MD) Cat bite involving extremity (Acute) Cellulitis (Acute) Cat bite of left hand (Acute) 1. Cat bite infection abscess left thumb at MP joint. 2. Inflammatory flexor tenosynovitis left thumb from cat bite infection abscess. 3. Septic MP joint left thumb from cat bite infection abscess. 4. Early clinical osteomyelitis MP joint left thumb. 5. s/p surgical preparation dorsal aspect and volar radial aspect left thumb at MP joint with incision and drainage and excisional debridement cat bite infection abscess and arthrotomy and drainage septic MP joint left thumb from cat bite infection abscess and partial ostectomy metacarpal head at MP joint left thumb for osteomyelitis and incision and drainage tendon sheath for inflammatory flexor tenosynovitis left thumb from cat bite infection. Wounds are stable. No further evidence of infection at this time. WBC is normal. Silver dressing change was tolerated a little easier today. Valium and Neurontin have been helpful. Operative culture shows Pasteurella multocida. On Unasyn. MRSA swab was negative. Infectious Diseases felt she could be discharged on Augmentin. Pathology is pending. Prealbumin was 18.2. Encourage nutritional supplementation with protein to help the healing process. Because of pus in the MP joint, the patient would benefit from IV antibiotics after discharge. PICC line was placed. After discharge, will need a silastic thumb spica splint from OT along with range of motion exercises, strengthening, and edema management. Will do the Silver dressing changes three times per week in the office. Discussed with the patient that I want to keep a close eye on the left thumb. Even though wound healing is progressing and the infection is well controlled at this time, if there any changes when seen in the office, will need to restart the IV antibiotics and consider further operative intervention. Preop would order an MRI. Dr. Preston will see the patient at the W[facility] in a week. Scripts have been written for Augmentin, [place] for pain (20 tabs), Valium for spasm (15 tabs), and Neurontin for burining nerve pain. Followup office tomorrow 02/18/19 for a Silver dressing change.
== END 2019-02-17 18:24 | disposition home or self-care (01) | DRG 580 ==
LOC: ED 21:03 → PCU 22:05
PROVIDERS: Nurse Practitioner Family; Surgery; Admitting Provider Hospitalist; Emergency Provider Emergency Medicine; Family Provider Family Medicine; PCP Family Medicine; Visit Provider Internal Medicine
PROC: 0RBV0ZZ Excision of Left Metacarpophalangeal Joint, Open Approach (ICD-10-PCS; principal; 2019-02-14 09:10)
DX: S61.052A Open bite of left thumb without damage to nail, initial encounter (principal); L03.114 Cellulitis of left upper limb; L02.512 Cutaneous abscess of left hand; M00.842 Arthritis due to other bacteria, left hand; A28.0 Pasteurellosis; M86.8X4 Other osteomyelitis, hand; M65.842 Other synovitis and tenosynovitis, left hand; L03.012 Cellulitis of left finger; W55.01XA Bitten by cat, initial encounter; I10 Essential (primary) hypertension; E87.6 Hypokalemia
CPT/HCPCS: 36415; 36569; 73130; 80048; 80053; 84134; 85025; 85027; 85652; 86140; 87070; 87075; 87077; 87102; 87176; 87186; 87205; 87206; 87640; 88305; 88311; 99282; J7050; J7120; A4216; J0295; J2405

== ENCOUNTER → 2019-02-26 12:34 | Outpatient (CLI) | payer OTHER, SELFPAY ==
[2019-02-22 10:14] VITALS: BMI 20.4
[2019-02-26 14:05] LABS: Hematocrit 40.6 % (37-47); Hemoglobin 13.3 g/dL (12.0-15.0); Mean Corp Hgb Conc 32.8 g/dL (32-36); Mean Corpuscular Hgb 30.6 pg (27.0-32.0); Mean Corpuscular Volume 93.3 fL (81-99); Mean Platelet Vol. 10.4 fl (6.2-12.0); Platelet Count 355 K/mm3 (150-450); RBC Distribution Width CV 12.9 % (11.6-14.6); RBC Distribution Width SD 44.2 fl (35.1-43.9); Red Blood Count 4.35 M/mm3 (4.2-5.4); White Blood Count 8.1 K/mm3 (4.4-11.0)
[2019-02-26 14:07] LABS: Anion Gap 6 (5-15); BUN 11 mg/dL (7-18); BUN/Creat Ratio 13.7 RATIO (10-20); Calcium,Total 9.4 mg/dL (8.5-10.1); Chloride 104 mmol/L (98-107); EST Glomerular Filtration Rate 78 mL/min (>60); Est Glom Filt Rate - Afr Amer 94 mL/min (>60); Glucose 80 mg/dL (74-106); Potassium 3.8 mmol/L (3.5-5.1); Sodium Level 138 mmol/L (136-145)
[2019-02-26 14:23] LABS: Erythrocyte Sedimentation Rate 10 mm/hr (0-30)
== END ==
PROVIDERS: Family Provider Family Medicine; PCP Family Medicine; Referring Provider Internal Medicine Infectious Disease; Visit Provider Internal Medicine Infectious Disease
DX: M86.9 Osteomyelitis, unspecified (principal)
CPT/HCPCS: 36415; 80048; 85027; 85652

== ENCOUNTER 2019-03-26 10:30 | Outpatient (RCR) | payer OTHER, SELFPAY ==
[2019-02-18 16:11] VITALS: BMI 20.4
[2019-02-22 10:14] VITALS: BMI 20.4
--- NOTE | 2019-03-05 16:21 | HP.OTEVAL ---
Patient's Visit Information SRAVANTHI COULTER is a 59 year old F, referred to Occupational Therapy by Vipin Arita MD, with a diagnosis of . Date of Evaluation: 02/26/19 Occupational Therapist: KENYA Johnson/Gladis, CHT - Subjective Subjective: This 59 year old female was seen for OT eval following cat bite with infection. Sx 02/14/19. pt states she is doing ok and wound is healing. pt does return to dr. berto osman for stitches to be removed. Pt states she feel nerve pain and notices limited ROM of her left thumb. pt is limited with ADLs and IADLS at this time. - ADLs Dressing: Pants, Shoes Fasteners: Buttons, Zippers, Snaps Eating: Use silverware Bathing: Handle washcloth & soap, Wash hair, Squeeze shampoo bottle Kitchen: Chop with knife, Peel fruits & vegetables, Open jars, Open bottle caps, Ziplock bags, Lift gallon of milk, Pour from pitcher, Take dish out of oven, Load/unload scheduling assistant Household: Sweep/mop, Dust, Laundry - Pain left hand 0 Pain Intensity Range: 1, 6 - ROM CMC: right 10 left 10 MP: right 60 left 35 IP: right 60 left 15 - Quick DASH-Disab of Arm,Shoulder& Hand Quick DASH Score: 70.4525 - Goals Goal:: Pt will demo a increase in left cloth grader strength by 15# to increase pts ind. with ADls and IADls by d/c. pt will demo a increase in left lateral and tripod pinch to 6# or greater by d/c to increas IND with ADLs and IADLS. Goal:: pt will demo left thumb ROM equal to right by d/c to return pt to PLOF with ADls and IADls Goal:: pt will report pain no greater than 1/10 with use of left hand with ADLs and IADLs by d/c Goal:: pt will demo understanding of scar mtg by end of 2nd session to decrease scar adhesions Goal:Daily scar massage when approriate: Yes Goal:ROM equal to unaffected hand: Yes Goal:Mechanical Reliability Engineer/Pinch strength at least 75% of unaffected hand: Yes Goal:No pain with affected hand use: Yes Goal:Full use of affected hand in daily activities including: Yes Goal:Decrease scar hypersensitivity: Yes - Rehabilitation General Assessment: S/P Cat bite infection left thumb at MP joint, Tenosynovitis left thumb. Post-Operative Diagnosis: 1. Cat bite infection abscess left thumb at MP joint. 2. Inflammatory flexor tenosynovitis left thumb from cat bite infection abscess. 3. Septic MP joint left thumb from cat bite infection abscess. 4. Early clinical osteomyelitis MP joint left thumb. Due to the above sx procedure pt is limited with ROM , strength and performance of ADLs and IADls. pt would benefit from skilled OT services 1-2x week for 6 weeks to assist pt in returning to her PLOF. Today therapist fabrizio. custom orthosis, ed,on use, care and precautions. therapist also ed. pt on AROM and PROM ex. pt was given handout and demo understanding of HEP and agree to POC. Rehabilitation Potential: Good - Anticipated Interventions Anticipated Interventions: A/AAROM/PROM, Strengthening, Edema Control, Scar Care, Triggerpoint Release, Desensitization, Sensory Retraining, Wound Care, Modalities, Orthoses, Joint Protection/Energy Conservation, Fine Motor Coord/Michael - Visit Plan Frequency: 1-2x /Week Duration: 6 Weeks TEXT: Thank you for the opportunity to evaluate your patient. For Medicare and Medicare HMO plans, please review the plan of care and approve it. It will need to be FAXED BACK to us at [phone] for Medicare purposes. Please let me know if there are questions or concerns regarding this plan of care. Physician Signature: Date:
--- NOTE | 2019-03-26 16:07 | HP.OTDCSUM ---
HP - OT D/C Summary It has been my pleasure to treat SRAVANTHI COULTER under orders from Vipin Arita MD, for the diagnosis of for a total of 5 visit(s). Please see the following information for a summary of their discharge status. - Overall Improvement % Improvement: 80 - Objective Objective/Function: Left thumb MP 65. left thumb IP nail bed 45. left lateral pinch 10#. left tripod pinch 10#. left radiologist strength 60#. pt has made great gains with ROM and strength and reports she is IND. with ADls and IADls at this time. Pt has met goals in OT and is D/C with HEP, PRE, scar mtg and desensitization - Goals Patient Goals: Regain Mobility, Regain Strength, Decrease Pain, Improve Fine Motor Skills, Use Hand/Wrist/Arm Normally Again Goal:: Pt will demo a increase in left radiologist strength by 15# to increase pts ind. with ADls and IADls by d/c. pt will demo a increase in left lateral and tripod pinch to 6# or greater by d/c to increas IND with ADLs and IADLS. Goal:: pt will demo left thumb ROM equal to right by d/c to return pt to PLOF with ADls and IADls Goal:: pt will report pain no greater than 1/10 with use of left hand with ADLs and IADLs by d/c Goal:: pt will demo understanding of scar mtg by end of 2nd session to decrease scar adhesions Goal:Daily scar massage when approriate: Yes Goal:ROM equal to unaffected hand: Yes Goal:Metallurgical Engineer/Pinch strength at least 75% of unaffected hand: Yes Goal:No pain with affected hand use: Yes Goal:Full use of affected hand in daily activities including: Yes Goal:Decrease scar hypersensitivity: Yes - Plan Plan: d/c with HEP - D/C Information Discharge Comments: PT was seen for 5 OT visits- she made great gains with her ROM and strength. pt has returned to performing all her ADLS and IADL at PLOF. pt is to cont with HEP of ROM and scar mtg and desensitization. If there are questions or concerns regarding this patient's occupational therapy, please fell free to call me at [phone]. Thank you for the referral of this patient. Sincerely, Jennifer Joseph, OTR/L, CHT
== END 2019-03-26 19:00 | disposition home or self-care (01) ==
LOC: OT 10:30
PROVIDERS: Family Provider Family Medicine; PCP Family Medicine; Referring Provider Surgery; Visit Provider Surgery
DX: S61.052D Open bite of left thumb without damage to nail, subsequent encounter (principal); L08.9 Local infection of the skin and subcutaneous tissue, unspecified; M65.142 Other infective (teno)synovitis, left hand; L02.512 Cutaneous abscess of left hand; M00.9 Pyogenic arthritis, unspecified; M86.9 Osteomyelitis, unspecified; W55.01XD Bitten by cat, subsequent encounter
CPT/HCPCS: 97110; 97140; 97166; 97530; 97760

== ENCOUNTER → 2019-04-09 10:18 | Outpatient (CLI) | payer OTHER, SELFPAY ==
[2019-03-07 14:22] VITALS: BMI 20.4
[2019-04-03 10:41] VITALS: BMI 20.4
--- NOTE | 2019-04-09 10:24 | BI_ITS ---
MAMMOGRAPHY - BILATERAL SCREENING REASON FOR EXAM: Female, 59 years old. Routine annual screening examination. PERTINENT HISTORY: Non-contributory. TECHNIQUE: Digital bilateral breast krystyna (3D mammographic acquisition) in the CC and MLO projections. 2-D mediolateral oblique (MLO) and craniocaudad (CC) views of both breasts were obtained. CAD: Full Field Digital Mammography with Computer Added Detection was performed. COMPARISON: Comparison is made with prior study dated September 12, 2017 and May 27, 2016. FINDINGS: Breast Composition: The breasts are heterogeneously dense, which may obscure small masses. There are no dominant masses or suspicious calcifications. No other significant abnormalities are identified. There has been no significant change since the prior study. BI/SCREEN MAMM (CAD) W/KRYSTYNA BILAT IMPRESSION: Stable bilateral screening mammogram. Yearly follow-up mammogram recommended. (A) ASSESSMENT CATEGORY: BIRADS Category 1: Negative. A letter regarding these results will be sent to the patient by the facility within 30 days. Approximately 10% of breast cancers are not detected by mammography. A normal mammogram should not delay biopsy of a clinically suspicious abnormality. [id number] Electronically Signed: Basil Burt, at 12:34 EST , Service support ,
== END ==
PROVIDERS: Family Provider Family Medicine; PCP Family Medicine
DX: Z12.31 Encounter for screening mammogram for malignant neoplasm of breast (principal)
CPT/HCPCS: 77063; 77067

== ENCOUNTER → 2019-12-17 10:03 | Outpatient (CLI) | payer OTHER, SELFPAY ==
[2019-04-03 10:41] VITALS: BMI 20.4
[2019-12-17 12:17] LABS: Absolute Lymphocyte Count 2.08 X10^3/uL (0.83-4.51); Basophil# 0.08 X10^3/uL; Basophil% 1.4 % (0-1); Eosinophil# 0.15 X10^3/uL; Eosinophils% 2.6 % (0-5); Hematocrit 40.3 % (37-47); Hemoglobin 13.1 g/dL (12.0-15.0); Lymphocyte # 2.08 X10^3/ul (4.0); Lymphocyte % 35.4 % (19-41); Mean Corp Hgb Conc 32.5 g/dL (32-36); Mean Corpuscular Hgb 30.5 pg (27.0-32.0); Mean Corpuscular Volume 93.9 fL (81-99); Mean Platelet Vol. 10.5 fl (6.2-12.0); Monocyte# 0.56 X10^3/uL; Monocyte% 9.5 % (0-10); NRBC Flagged by Analyzer 0 % (0-5); Neutrophil # 2.99 X10^3/uL (2.7-7.7); Neutrophil % 50.8 % (47-70); Platelet Count 322 K/mm3 (150-450); RBC Distribution Width CV 13.6 % (11.6-14.6); RBC Distribution Width SD 46.9 fl (35.1-43.9); Red Blood Count 4.29 M/mm3 (4.2-5.4); White Blood Count 5.9 K/mm3 (4.4-11.0)
[2019-12-17 13:10] LABS: Creatinine, Urine (random) < 13.00 mg/dL (NO RANGE EST.); Microalbumin,Random Urine < 5.0 mg/L (NO RANGE EST.)
[2019-12-17 13:13] LABS: ALB/GLOB Ratio 1.1 RATIO (0.9-2.4); AST(SGOT) 31 U/L (15-37); Alanine Aminotransfer ALT/SGPT 33 U/L (13-56); Albumin, Serum 3.9 g/dL (3.2-5.0); Alkaline Phosphatase 73 U/L (45-117); Anion Gap 6 (5-15); BUN 11 mg/dL (7-18); BUN/Creat Ratio 13.9 RATIO (10-20); Calcium,Total 9.4 mg/dL (8.5-10.1); Chloride 104 mmol/L (98-107); Creatinine, Serum 0.79 mg/dL (0.55-1.02); EST Glomerular Filtration Rate 79 mL/min (>60); Est Glom Filt Rate - Afr Amer 95 mL/min (>60); Globulin 3.7 g/dL (2.2-4.2); Glucose 86 mg/dL (74-106); Potassium 4.3 mmol/L (3.5-5.1); Protein, Total 7.6 g/dL (6.4-8.2); Sodium Level 139 mmol/L (136-145); Thyroid Stim Hormone (TSH) 2.52 uIU/mL (0.358-3.74)
== END ==
PROVIDERS: PCP Family Medicine; Referring Provider Family Medicine; Visit Provider Family Medicine
DX: I10 Essential (primary) hypertension (principal)
CPT/HCPCS: 36415; 80053; 82043; 82570; 84443; 85025

== ENCOUNTER → 2020-02-06 08:25 | Outpatient (CLI) | payer OTHER, SELFPAY ==
[2019-04-03 10:41] VITALS: BMI 20.4
--- NOTE | 2020-02-06 08:30 | BD_ITS ---
STUDY: DUAL ENERGY X-RAY ABSORPTIOMETRY / DXA REASON FOR EXAM: Female, 59 years old. Age of andrey 43. Pat is 119.8# and 61.75 and quot;. Takes a multi-vit. Exercises moderatly. Hx of C4-C7 fusion. Grandmother has osteo. Hx of a little toe fx. TECHNIQUE: Bone Mineral Density (BMD) measurements of lumbar spine and bilateral hips were obtained. COMPARISON: None. FINDINGS: Lumbar Spine (L1-L4): g/cm2 (1.301) / T-score (1.0) / Z-score (2.1) Findings are suggestive of normal bone density with a low fracture risk. Left Femur Total: g/cm2 (1.029) / T-score (0.2) / Z-score (1.0) Left Femoral Neck: g/cm2 (0.977) / T-score (-0.4) / Z-score (0.7) Right Femur Total: g/cm2 (0.998) / T-score (-0.1) / Z-score (0.8) Right Femoral Neck: g/cm2 (0.956) / T-score (-0.6) / Z-score (0.6) BD/Dexa Bone Density Study IMPRESSION: The patient is considered normal as outlined below according to World [place] Organization (WHO) criteria with a low fracture risk. Reference Information: The T-score is the number of standard deviations above or below the standard which is normal for young adults at their peak bone mineral density. The World Health Organization (WHO) interprets the T-scores as follows: Above -1 Normal bone density Between -1 and -2.5 Osteopenia Equal to / or below -2.5 Osteoporosis As a practical clinical guideline, osteopenia may be graded as follows: Mild -1 through -1.5 Moderate -1.6 through -2.0 Severe -2.1 through -2.4 The Z-score is the number of standard deviations above or below age-matched controls. A Z-score of less than -1.5 would be considered abnormal. References: 1. NIH Osteoporosis and Related Bone Diseases www osteo.org 2. International Society for Clinical Densitometry www iscd.org 3. National Osteoporosis Foundation www nof.org Electronically Signed: Basil Burt, at 10:32 EDT , Service support ,
== END ==
PROVIDERS: PCP Family Medicine
DX: Z13.820 Encounter for screening for osteoporosis (principal); Z78.0 Asymptomatic menopausal state
CPT/HCPCS: 77080

== ENCOUNTER → 2020-04-10 09:56 | Outpatient (CLI) | payer OTHER, SELFPAY ==
[2019-04-03 10:41] VITALS: BMI 20.4
--- NOTE | 2020-04-10 10:00 | BI_ITS ---
MAMMOGRAPHY - BILATERAL SCREENING REASON FOR EXAM: Female, 60 years old. Routine annual screening examination. PERTINENT HISTORY: Non-contributory. TECHNIQUE: Digital bilateral breast krystyna (3D mammographic acquisition) in the CC and MLO projections. 2-D mediolateral oblique (MLO) and craniocaudad (CC) views of both breasts were obtained. CAD: Full Field Digital Mammography with Computer Added Detection was performed. COMPARISON: Comparison is made with prior study dated 04/09/2019 and 09/12/2017. FINDINGS: Breast Composition: The breasts are heterogeneously dense, which may obscure small masses. There are no dominant masses or suspicious calcifications. No other significant abnormalities are identified. There has been no significant change since the prior study. BI/SCREEN MAMM (CAD) W/KRYSTYNA BILAT IMPRESSION: Stable bilateral screening mammogram. Yearly follow-up mammogram recommended. (A) ASSESSMENT CATEGORY: BIRADS Category 1: Negative. A letter regarding these results will be sent to the patient by the facility within 30 days. Approximately 10% of breast cancers are not detected by mammography. A normal mammogram should not delay biopsy of a clinically suspicious abnormality. [id number] Electronically Signed: Basil Burt, at 10:51 EST , Service support ,
== END ==
PROVIDERS: PCP Family Medicine
DX: Z12.31 Encounter for screening mammogram for malignant neoplasm of breast (principal)
CPT/HCPCS: 77063; 77067